=== PATIENT | female | born 1980 | race Caucasian/White ===

== ENCOUNTER 2017-04-27 13:57 | Inpatient (IN) ==
[2017-04-27 14:56] LABS: MANUAL DIFF NEEDED? NO
[2017-04-27 15:16] LABS: BASO% 0.4 % (0.0-0.8); EOS# 0.27 X1000 (0.0-0.7); EOS% 1.8 % (0.0-10.0); HEMATOCRIT 38.7 % (37.0-47.0); HEMOGLOBIN 12.4 g/dL (12.0-16.0); IMM GRAN# 0.03 X1000 (0.0-0.04); IMM GRAN% 0.2 % (0.0-0.5); LYMPH# 4.34 X1000 (1.2-3.4); LYMPH% 28.6 % (20.5-51.1); MCH 26.4 PG (27-31); MCV 82.5 FL (81-99); MONO# 0.66 X1000 (0.11-0.59); MONO% 4.4 % (1.7-9.3); MPV 11.5 FL (7.4-10.4); NEUT% 64.6 % (42.2-75.2); PLT 613 X1000 (130-400); RBC 4.69 XMIL (4.2-5.4)
[2017-04-27 15:49] LABS: ALBUMIN 4.3 g/dL (3.5-5.0); TOTAL BILIRUBIN 0.23 mg/dL (0.20-1.00); TOTAL PROTEIN 8.5 g/dL (6.3-8.3)
[2017-04-27] MEDS ORDERED: NS 1,000 ML IV ONE ×2 (16:00→16:39)
[2017-04-27] MEDS ORDERED: D50W SYRINGE IV ONE ×3 (16:00→22:31)
[2017-04-27] MEDS ORDERED: HUMULIN R IV ONE ×3 (16:01→23:11)
[2017-04-27] MEDS ORDERED: CALCIUM CHLORIDE SYRINGE IV ONE ×2 (16:02→17:00)
[2017-04-27] MEDS ORDERED: SODIUM BICARBONATE 8.4% IV ONE (16:02)
[2017-04-27] MEDS ORDERED: CARDIZEM IV ONE (16:03)
--- NOTE | 2017-04-27 16:05 | EKG Report ---
Test Performed on : 04/27/2017 3:47:00 PM Test Reason : ABNORMAL LABS Blood Pressure : / mmHG Vent. Rate : 154 BPM Atrial Rate : 375 BPM P-R Int : 000 ms QRS Dur : 074 ms QT Int : 110 ms P-R-T Axes : 000 027 000 degrees QTc Int : 176 ms Atrial fibrillation. with rapid ventricular response. with premature ventricular or aberrantly condu cted complexes. Low voltage QRS Possible Lateral infarct , age undetermined Abnormal ECG No previous ECGs available Unconfirmed Result
[2017-04-27] MEDS ORDERED: CALCIUM CHLORIDE 1 GM in NS 100 ML IV ONE (16:10)
[2017-04-27 16:20] LABS: URINE CULTURE NEEDED? NO; URINE SOURCE CLEAN CATCH
--- NOTE | 2017-04-27 16:22 | ED EKG INTERP ---
This chart was entered by Xochitl Us Scribe, acting as scribe for Bebeto Inman MD. EKG Interpretation - EKG Time of EKG reading by physician:: 15:47 EKG Read and Signed by:: Bebeto Inman EKG Interpretation (*Must complete 3 of following elements*): Abnormal Rate: 154 Rhythm: a-fib with RVR with premature or abberantly conducted complexes [place]: normal QRS: other (low voltage) NE Interval: normal ST Wave: normal Comments: possible lateral infarct Attestation - Physician/ MAURY Attestation Patient care was provided by Advanced Practice Provider:: No The physician spent face to face time with patient:: Yes Advanced Practice Provider documentation review:: Supervising physician onsite and consulted in the evaluation and care of this patient. The physician did have a face to face encounter with the patient. This chart was documented by the indicated scribe, (Xochitl Us Scribe) and accurately reflects the services I performed and decisions made by me, Bebeto Inman MD, as attested by the provider's signature.
--- NOTE | 2017-04-27 16:23 | PROVIDER DOCUMENTATION ---
This chart was entered by Xochitl Us Scribe, acting as scribe for Bebeto Inman MD. HPI-General Adult - General Source: patient - History of Present Illness -Gen Adult Nature of Presenting Problems: Patient is a 37 year old female who presents in the ED with complaints of hyperglycemia. She states over the last two to three days she has had elevated blood sugar (ranging around 500), and states she also has felt dizzy. She also states she was seen at an urgent care clinic a few days ago and was called today due to abnormal lab values (creatinine 4.5, BUN 114, and potassium of 8.0) . She denies any other symptoms. Location of Pain/Injury: reports: none Pain Radiation: reports: no radiation Quality of Pain: reports: none Severity: reports: mild, moderate Onset/Duration: reports: 3 days ago Timing: reports: still present, changing over time Context/Activities at Onset: reports: none Modifying Factors: improves with: nothing Associated Symptoms: reports: other (high blood sugar, abnormal labs) Similar Symptoms Previously?: No Recently seen or treated by another doctor?: No - Diabetes Related Context Context: reports: high blood sugar <Bebeto Inman - Last Filed: 04/27/17 17:48> - General Source: patient <Ras BlueHayley - Last Filed: 04/27/17 19:26> - General Chief Complaint: Abnormal Lab[s] Stated Complaint: SENT BY [facility] FOR FURTHER EVAL Time Seen by Provider: 04/27/17 15:51 Allergies/Adverse Reactions: Patient Allergies Allergy/AdvReac Type Severity Reaction Status Date / Time No Known Allergies Allergy Verified 04/27/17 16:15 Home Medications: Home Medication List Medication Instructions Recorded Confirmed Last Taken Type Crestor 20 mg PO QAM 07/09/13 03/17/15 03/16/15 14:00 History UNK Januvia PO DAILY 07/09/13 03/17/15 03/16/15 14:00 History UNK Lisinopril PO DAILY 07/09/13 03/17/15 03/16/15 14:00 History UNK Metformin [Glucophage] 1,000 mg PO BID 07/09/13 03/17/15 03/16/15 14:00 History Wellbutrin PO BID 07/09/13 03/17/15 03/16/15 14:00 History UNK Hydrocodone/Acetaminophen [[place] 1 each PO Q4-6H PRN PRN #12 tablet 03/17/15 Unknown Rx 5-325 Tablet] Mupirocin Ointment [Bactroban 1 applicatn TOP TID 03/17/15 03/17/15 03/16/15 14: 00 History Ointment] Ondansetron HCl [Zofran] 4 mg PO PRN PRN 03/17/15 03/17/15 Unknown History Sulfamethoxazole/Trimethoprim 1 each PO BID 03/17/15 03/17/15 03/16/15 14:00 History [Bactrim Ds Tablet] Review of Systems - Adult - REVIEW OF SYSTEMS - ADULT Constitutional: reports: see HPI, other (high blood sugar, abnormal lab values) Eyes: reports: no symptoms reported Ears, Nose, Mouth & Throat: reports: no symptoms reported Cardiovascular: reports: no symptoms reported Respiratory: reports: no symptoms reported Gastrointestinal: reports: no symptoms reported Genitourinary: reports: no symptoms reported Musculoskeletal: reports: no symptoms reported Integumentary: reports: no symptoms reported Neurological: reports: no symptoms reported Psychiatric: reports: no symptoms reported Endocrine: reports: no symptoms reported Hematologic/Lymphatic: reports: no symptoms reported Allergic/Immunologic: reports: no symptoms reported All Other Systems: Reviewed and Negative <Bebeto Inman - Last Filed: 04/27/17 17:48> - REVIEW OF SYSTEMS - ADULT Constitutional: denies: fever <Ras Blue - Last Filed: 04/27/17 19:26> Past History - Adult - PAST MEDICAL HISTORY-ADULT Review of Records: reports: Nursing Assessment Review, Medications Reviewed Major Childhood Illnesses: reports: denies history Cardiovascular: reports: HTN, hyperlipidemia Respiratory: reports: denies history Gastrointestinal: reports: denies history Obstetrical/Gynecological: reports: ovarian cysts (PCOS) Genitourinary: reports: denies history Musculoskeletal: reports: denies history Neurological: reports: denies history Psychiatric: reports: depression Endocrine/Immune: reports: Diabetes Other Conditions: reports: denies history - PRIOR SURGERIES/PROCEDURES Surgical/Procedure History: reports: none - IMMUNIZATION STATUS Childhood Immunizations: See Nurse Assessment Flu Vaccine: See Nurse Assessment - FAMILY HISTORY Family History: reviewed, not pertinent - SOCIAL HISTORY Smoking: cigarettes, less than 1 pack/day Substance Use: none/never Alcohol Use Frequency: never Living Situation: family <Bebeto Inman - Last Filed: 04/27/17 17:48> - PAST MEDICAL HISTORY-ADULT Review of Records: reports: Old Records Reviewed, Nursing Assessment Review, Medications Reviewed, Social history reviewed & non-contributory. <Ras Blue - Last Filed: 04/27/17 19:26> Physical Exam-General - PHYSICAL EXAM-ADULT Initial Vital Signs Reviewed: Yes - CONSTITUTIONAL General Appearance: alert, no apparent distress - EYES Eyes: PERRL/EOMI, pink conjunctivae - HEAD, EARS, NOSE, MOUTH & THROAT HENMT: normocephalic/atraumatic, moist mucous membranes - NECK Neck: non-tender, full range of motion, supple, normal inspection - RESPIRATORY Respiratory: chest non-tender, lungs clear, normal breath sounds, no pleuratic chest pain, no respiratory distress, no accessory muscle use - CARDIOVASCULAR Cardiovascular: no edema, no gallop, no JVD, no murmur, tachycardia, irregularly irregular - GASTROINTESTINAL (ABDOMEN) Abdominal Exam: normal bowel sounds, non tender, soft, no organomegaly, no pulsatile mass - LYMPHATIC Lymphatic: no adenopathy - MUSCULOSKELETAL Back Exam: normal inspection, no CVA tenderness, no vertebral tenderness Extremity: normal range of motion, non-tender, normal inspection, no pedal edema , no calf tenderness, normal capillary refill, pelvis stable - SKIN Integumentary: normal color, normal turgor, warm/dry - NEUROLOGIC Neurologic: grossly normal, no motor/sensory deficits - PSYCHIATRIC Psych/Mental Status: normal mood/affect, oriented x 3 <Bebeto Inman - Last Filed: 04/27/17 17:48> - PHYSICAL EXAM-ADULT Initial Vital Signs Reviewed: Yes - CONSTITUTIONAL General Appearance: alert, no apparent distress <Ras Blue - Last Filed: 04/27/17 19:26> Progress - PLAN OF CARE/RESULTS Progress/Plan/Lab Results: Vital Signs - 8 hr 04/27/17 14:03 Temperature 97.7 F Pulse Rate 98 H Respiratory Rate 20 Blood Pressure 109/50 O2 Sat by Pulse Oximetry 99 Laboratory Results - last 24 hr 04/27/17 04/27/17 14:12 14:12 WBC 15.16 H RBC 4.69 Hgb 12.4 Hct 38.7 MCV 82.5 MCH 26.4 L MCHC 32.0 L RDW Std Deviation 16.4 H Plt Count 613 H MPV 11.5 H Immature Gran % (Auto) 0.2 Neut % (Auto) 64.6 Lymph % (Auto) 28.6 [place] % (Auto) 4.4 Eos % (Auto) 1.8 Baso % (Auto) 0.4 Immature Gran # (Auto) 0.03 Neut # (Auto) 9.80 H Lymph # (Auto) 4.34 H [place] # (Auto) 0.66 H Eos # (Auto) 0.27 Baso # (Auto) 0.06 Sodium 135 L Potassium 8.0 H* Chloride 103 Carbon Dioxide 14 L Anion Gap 18 BUN 114 H Creatinine 4.5 H Estimated GFR/1.73 m2 11 BUN/Creatinine Ratio 25 Glucose 101 Calculated Osmolality 306 Calcium 10.0 Total Bilirubin 0.23 AST 8 L ALT 11 Alkaline Phosphatase 105 H Total Protein 8.5 H Albumin 4.3 Globulin 4.2 Albumin/Globulin Ratio 1.0 Amylase 49 Lipase 49 Orders Category Date Time Status Saline Loc DIRECTED Care 04/27/17 14:48 Active NPO Diet 04/27/17 14:48 Active AMYLASE [CHEM] Stat Lab 04/27/17 14:12 Completed CBC WITH ELECTRONIC DIFF [HEME] Stat Lab 04/27/17 14:12 Completed COMPREHENSIVE METABOLIC PANEL [CHEM] Stat Lab 04/27/17 14:12 Completed LIPASE [CHEM] Stat Lab 04/27/17 14:12 Completed URINALYSIS W/POSS RFLX CULT-1 [URINALYSIS] Stat Lab 04/27/17 14:48 Uncollected 0.9% Sodium Chloride Inj [Ns] 1,000 ml Med 04/27/17 16:00 Active IV 999 mls/hr Dextrose 50% Syringe [D50w Syringe] Med 04/27/17 16:00 Discontinued 50 ml IV NOW ONE Insulin Human Regular [Humulin R] Med 04/27/17 16:01 Discontinued 10 unit IV NOW ONE EKG [EKG] Stat Ther 04/27/17 15:53 Ordered Result Diagrams: 04/27/17 14:12 04/27/17 14:12 - REASSESSMENT Reassessment #1 Time Reassessed: 17:24 Status: improving (pt is now in sinus rythm, awaiting BMP) - CHANGE OF SHIFT REPORT (ED Provider) Report Given and Care Transferred to:: Dr Barry Time of Transfer: 18:00 Items Pending: Labs <Bebeto Inman - Last Filed: 04/27/17 17:48> - PLAN OF CARE/RESULTS Progress/Plan/Lab Results: Vital Signs - 8 hr 04/27/17 14:03 04/27/17 16:00 04/27/17 16:08 Temperature 97.7 F Pulse Rate 98 H 105 H 103 H Respiratory Rate 20 25 H 18 Blood Pressure 109/50 100/63 100/63 O2 Sat by Pulse Oximetry 99 100 100 04/27/17 17:23 Temperature Pulse Rate 103 H Respiratory Rate 18 Blood Pressure 108/45 O2 Sat by Pulse Oximetry 100 Laboratory Results - last 24 hr 04/27/17 04/27/17 04/27/17 14:12 14:12 16:15 WBC 15.16 H RBC 4.69 Hgb 12.4 Hct 38.7 MCV 82.5 MCH 26.4 L MCHC 32.0 L RDW Std Deviation 16.4 H Plt Count 613 H MPV 11.5 H Immature Gran % (Auto) 0.2 Neut % (Auto) 64.6 Lymph % (Auto) 28.6 [place] % (Auto) 4.4 Eos % (Auto) 1.8 Baso % (Auto) 0.4 Immature Gran # (Auto) 0.03 Neut # (Auto) 9.80 H Lymph # (Auto) 4.34 H [place] # (Auto) 0.66 H Eos # (Auto) 0.27 Baso # (Auto) 0.06 Sodium 135 L Potassium 8.0 H* Chloride 103 Carbon Dioxide 14 L Anion Gap 18 BUN 114 H Creatinine 4.5 H Estimated GFR/1.73 m2 11 BUN/Creatinine Ratio 25 Glucose 101 Calculated Osmolality 306 Calcium 10.0 Total Bilirubin 0.23 AST 8 L ALT 11 Alkaline Phosphatase 105 H Total Protein 8.5 H Albumin 4.3 Globulin 4.2 Albumin/Globulin Ratio 1.0 Amylase 49 Lipase 49 Urine Source CLEAN CATCH Urine Color YELLOW Urine Turbidity CLEAR Urine pH 5.0 Ur Specific [place] 1.022 Urine Protein 30 A Ur Glucose (Stick) 70 A Ur Ketones (Stick) NEGATIVE Urine Blood MODERATE A Urine Nitrite NEGATIVE Urine Bilirubin NEGATIVE Urobilinogen Dipstick NORMAL Urine Leukocytes NEGATIVE Urine WBC (Auto) <10 Urine RBC (Auto) <10 U Epithel Cells (Auto) <10 Urine Bacteria (Auto) NEGATIVE Urine Crystals Not Reportable Small Round Cells TRANS PRESENT Urine Casts NONE SEEN Urine Yeast-like Cells Not Reportable 04/27/17 16:57 WBC RBC Hgb Hct MCV MCH MCHC RDW Std Deviation Plt Count MPV Immature Gran % (Auto) Neut % (Auto) Lymph % (Auto) [place] % (Auto) Eos % (Auto) Baso % (Auto) Immature Gran # (Auto) Neut # (Auto) Lymph # (Auto) [place] # (Auto) Eos # (Auto) Baso # (Auto) Sodium 133 L Potassium 6.7 H* D Chloride 103 Carbon Dioxide 15 L Anion Gap 15 BUN 107 H Creatinine 4.1 H Estimated GFR/1.73 m2 12 BUN/Creatinine Ratio 26 Glucose 169 H D Calculated Osmolality 304 Calcium 8.3 L D Total Bilirubin AST ALT Alkaline Phosphatase Total Protein Albumin Globulin Albumin/Globulin Ratio Amylase Lipase Urine Source Urine Color Urine Turbidity Urine pH Ur Specific [place] Urine Protein Ur Glucose (Stick) Ur Ketones (Stick) Urine Blood Urine Nitrite Urine Bilirubin Urobilinogen Dipstick Urine Leukocytes Urine WBC (Auto) Urine RBC (Auto) U Epithel Cells (Auto) Urine Bacteria (Auto) Urine Crystals Small Round Cells Urine Casts Urine Yeast-like Cells Orders Category Date Time Status Saline Loc DIRECTED Care 04/27/17 14:48 Active NPO Diet 04/27/17 14:48 Active AMYLASE [CHEM] Stat Lab 04/27/17 14:12 Completed BMP [BASIC METABOLIC PANEL] [CHEM] Stat Lab 04/27/17 16:57 Completed CBC WITH ELECTRONIC DIFF [HEME] Stat Lab 04/27/17 14:12 Completed COMPREHENSIVE METABOLIC PANEL [CHEM] Stat Lab 04/27/17 14:12 Completed LIPASE [CHEM] Stat Lab 04/27/17 14:12 Completed URINALYSIS W/POSS RFLX CULT-1 [URINALYSIS] Stat Lab 04/27/17 16:15 Completed URINE MANUAL MICROSCOPIC [URINALYSIS] Stat Lab 04/27/17 16:15 Completed 0.9% Sodium Chloride Inj [Ns] 1,000 ml Med 04/27/17 16:00 Discontinued IV 999 mls/hr 0.9% Sodium Chloride Inj [Ns] 1,000 ml Med 04/27/17 16:39 Discontinued IV 999 mls/hr Albuterol [Albuterol Neb] Med 04/27/17 19:04 Discontinued 5 mg INH NOW ONE Calcium Chloride Syringe Med 04/27/17 17:00 Discontinued 1 gm IV NOW ONE Dextrose 50% Syringe [D50w Syringe] Med 04/27/17 16:00 Discontinued 50 ml IV NOW ONE Diltiazem [Cardizem] Med 04/27/17 16:03 Discontinued 25 mg IV NOW ONE Insulin Human Regular [Humulin R] Med 04/27/17 16:01 Discontinued 10 unit IV NOW ONE Sodium Bicarbonate 8.4% Med 04/27/17 16:02 Discontinued 50 meq IV NOW ONE Sodium Polystyrene [Kayexalate] Med 04/27/17 19:05 Discontinued 30 gm PO NOW ONE Aerosol Treatments Routine Oth 04/27/17 19:04 Active Aerosol Treatments Stat Oth 04/27/17 19:04 Active EKG [EKG] Stat Ther 04/27/17 15:53 Draft Result Diagrams: 04/27/17 14:12 04/27/17 16:57 <Ras Blue - Last Filed: 04/27/17 19:26> Departure - Departure Certified Medical Emergency: Emergent - Critical Care Note This patient required my direct & personal management of CC.: No <Bebeto Inman - Last Filed: 04/27/17 17:48> - Departure Date of Disposition Decision: 04/27/17 Time of Disposition Decision: 19:24 Certified Medical Emergency: Emergent - Critical Care Note This patient required my direct & personal management of CC.: No <Ras Blue - Last Filed: 04/27/17 19:26> - Departure DIAGNOSIS: Hyperkalemia, Acute kidney injury Hyperglycemia due to type 2 diabetes mellitus Qualifiers: 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 The physician did have a face to face encounter with the patient. <Bebeto Inman - Last Filed: 04/27/17 17:48> - Physician/ MAURY Attestation Patient care was provided by Advanced Practice Provider:: No The physician spent face to face time with patient:: Yes Advanced Practice Provider documentation review:: Supervising physician onsite and consulted in the evaluation and care of this patient. The physician did have a face to face encounter with the patient. <Ras Blue - Last Filed: 04/27/17 19:26> This chart was documented by the indicated scribe, (Xochitl Us Scribe) and accurately reflects the services I performed and decisions made by me, Bebeto Inamn MD, as attested by the provider's signature.
[2017-04-27 16:30] LABS: BILIRUBIN URINE NEGATIVE (NEGATIVE); BLOOD URINE MODERATE (NEGATIVE); COLOR YELLOW; GLUCOSE URINE 70 mg/dL (NEGATIVE); LEUKOCYTES URINE NEGATIVE (NEGATIVE); NITRITE URINE NEGATIVE (NEGATIVE); PROTEIN URINE 30 mg/dL (NEGATIVE); SP GRAVITY URINE 1.022; TURBIDITY URINE CLEAR (CLEAR); UROBILINOGEN URINE NORMAL (NORMAL)
[2017-04-27 16:32] LABS: URINE MICRO REVIEW NEEDED? YES
[2017-04-27 16:39] LABS: UR EPITHELIAL CELLS <10 /HPF (<10); URINE BACTERIA NEGATIVE /HPF; URINE RBC <10 /HPF (<10); URINE WBC <10 /HPF (<10)
[2017-04-27 16:58] LABS: URINE SMALL ROUND CELLS TRANS PRESENT
[2017-04-27 16:59] LABS: URINE CASTS NONE SEEN
[2017-04-27 18:23] LABS: CALCIUM 8.3 mg/dL (8.8-10.2); POTASSIUM 6.7 mmol/L (3.5-5.1)
[2017-04-27] MEDS ORDERED: ALBUTEROL NEB INH ONE (19:04)
[2017-04-27] MEDS ORDERED: KAYEXALATE PO ONE (19:05)
[2017-04-27] MEDS ORDERED: HUMALOG SUBQ ONE (22:31)
[2017-04-27] MEDS ORDERED: ZOFRAN IV PRN (22:31)
[2017-04-27] MEDS ORDERED: TYLENOL PO PRN (22:31)
[2017-04-27 22:42] LABS: CALCIUM 9.6 mg/dL (8.8-10.2)
[2017-04-27 22:43] LABS: HEMOGLOBIN A1C 10.8 % (4.8-6.0)
--- NOTE | 2017-04-27 22:48 | HISTORY AND PHYSICAL ---
PATIENT OF: José Antonio Real MD REASON FOR ADMISSION: Worsening weakness, lightheadedness and postural blood vision. Ongoing for the last 2 days. HISTORY OF PRESENT ILLNESS: Ms. Shannan Colvin is a 37-year-old woman with poorly controlled type 2 diabetes, hypertension, hyperlipidemia, who comes in today after being called by the [facility] who saw her 4 days ago to go to the ER because of some abnormal blood lab work. Over a week ago, she says she has been feeling weak, lightheaded and slightly short of breath with exertion. Five days later, she went to the urgent care center where she was diagnosed with some respiratory condition and started on Bactrim and received some other shots while she was there. She said since then, she has been getting much weaker and having more profound lightheadedness with intermittent blurred vision. No polyuria or polydipsia. No other cardiorespiratory complaints. She is having some slight nausea today, but no vomiting, diarrhea or blood loss. Appetite is diminished as a result of nausea she has been experiencing. She denies any palpitations or chest pain or any cardiorespiratory symptoms. No focal weakness, numbness, tingling, and almost had a syncopal event yesterday when she stood up. She has a very dull headache, but no other complaints. No other neurological complaints. No fever, no chills. She also admits to having decreasing urinary output, but no accompanying edema, PND, orthopnea or leg swelling. REVIEW OF SYSTEMS: Twelve system review is negative. Positive findings noted except for the positive findings noted in the HPI. ALLERGIES: No known allergies. HOME MEDICATIONS: Lipitor 20 mg daily. Wellbutrin 20 mg b.i.d. Xigduo 2 tablets b.i.d. [place] 5 mg q.4 p.r.n. Tresiba 40 units b.i.d. Lisinopril 20 mg daily. Bactrim 1 b.i.d. SURGICAL HISTORY: She has had an oophorectomy for a benign tumor. FAMILY HISTORY: No kidney disease. Positive for coronary artery disease and type 2 diabetes. SOCIAL HISTORY: Smokes 1 pack a day. No plans to quit. She is . No alcohol or illicit drug use. DIAGNOSTIC DATA: EKG did not show any evidence of a widening of the QRS. Normal sinus rhythm. White count 15,000, hemoglobin and hematocrit 12 and 38, platelets 613,000. Sodium is 133, potassium 6.7, bicarb 15, BUN 107, creatinine 4.1, glucose 169. Alkaline phosphatase 105. Amylase, lipase is normal. Urinalysis shows moderate blood. 70 glucose, 30 protein. EKG reviewed by me shows normal sinus rhythm with a possible Q-waves in the septal leads. Questionable left axis deviation. No QRS noted. Possible peaking of the Q- waves in anterior leads. PHYSICAL EXAMINATION: VITAL SIGNS: Blood pressure 112/67, heart rate 74, respirations 18, temperature is 97.7 degrees, 97% on room air. GENERAL: She is a young overweight woman who is not in acute distress. She is alert and oriented x3. Normal mood and affect. HEENT: Head is normocephalic, atraumatic. Eyes, RADHA, EOMI. She is anicteric and not pale. ENT and oropharyngeal exam grossly normal. She definitely has some degree of moderate hirsutism. NECK: Supple. No JVD or carotid bruit. No thyromegaly. CHEST: Clear to auscultation. Good air entry both lung collins. CARDIOVASCULAR: 1st and 2nd heart sounds heard. No gallops, murmurs, rubs, rhythm is regular. ABDOMEN: Soft, no tenderness. No mass or organomegaly, bowel sounds are hypoactive. RECTAL: Deferred at this time. EXTREMITIES: Neurovascularly intact. No edema, clubbing, cyanosis. NEUROLOGIC: No focal deficits. No myoclonus. SKIN: Good skin turgor, but no rash, no breakdown of skin, no erythema. MUSCULAR: Grossly normal. ASSESSMENT: Acute kidney injury probably secondary to concomitant use of VALE inhibitor and Bactrim with possible fluid losses from SGLT inhibitor. PLAN: 1. At this time, we will hydrate patient. Correct hyperkalemia resulting from acute kidney insufficiency. Discontinue any nephrotoxic medications, including lisinopril , Bactrim and even Xigduo. Repeat basic metabolic panel within the next 4 hours to document improvement of hyperkalemia. Also get another basic metabolic panel in the a.m. 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 Ensure antihypertensives are withheld if systolic blood pressure is less than 130 to not compromise effective renal perfusion. 2. Type 2 diabetes, probably uncontrolled. Continue with half-dose of Tresiba due to the patient's compromised renal failure as this is a very long-acting insulin which can put patient at risk of hypoglycemia. Check A1c, and continue with low sliding scale. 3. Hypertension. We will withhold any blood pressure medications since patient is normotensive. 4. Hyperlipidemia. Hold Lipitor in the short-term and resume once this is improved. I will also consult Dr. Adorno to see patient for acute kidney insufficiency for further input. cc: Srikanth Lundberg MD MTDD
[2017-04-27 22:54] LABS: POTASSIUM 6.2 mmol/L (3.5-5.1)
[2017-04-27] MEDS: NS 1,000 ML IV SCH (23:45)
[2017-04-28 05:18] LABS: MANUAL DIFF NEEDED? NO
[2017-04-28 05:32] LABS: BASO% 0.7 % (0.0-0.8); EOS# 0.31 X1000 (0.0-0.7); EOS% 2.9 % (0.0-10.0); HEMATOCRIT 32.7 % (37.0-47.0); HEMOGLOBIN 10.5 g/dL (12.0-16.0); IMM GRAN# 0.02 X1000 (0.0-0.04); IMM GRAN% 0.2 % (0.0-0.5); LYMPH# 6.31 X1000 (1.2-3.4); LYMPH% 58.7 % (20.5-51.1); MCH 26.2 PG (27-31); MCHC 32.1 g/dL (33-37); MCV 81.5 FL (81-99); MONO# 0.53 X1000 (0.11-0.59); MONO% 4.9 % (1.7-9.3); MPV 11.1 FL (7.4-10.4); NEUT% 32.6 % (42.2-75.2); PLT 425 X1000 (130-400); RBC 4.01 XMIL (4.2-5.4)
[2017-04-28 05:44] LABS: ALBUMIN 3.4 g/dL (3.5-5.0); CALCIUM 8.9 mg/dL (8.8-10.2); TOTAL BILIRUBIN 0.2 mg/dL (0.20-1.00); TOTAL PROTEIN 6.4 g/dL (6.3-8.3)
[2017-04-28 05:47] LABS: POTASSIUM 6.2 mmol/L (3.5-5.1)
[2017-04-28] MEDS: NS 1,000 ML IV SCH ×4 (05:53→22:27)
[2017-04-28] MEDS ORDERED: HUMULIN R IV ONE (05:59)
[2017-04-28] MEDS ORDERED: D50W SYRINGE IV ONE (06:00)
[2017-04-28] MEDS ORDERED: ALBUTEROL 0.5% INH CONC FOR HYPERKALEMIA INH ONE (06:00)
[2017-04-28] MEDS ORDERED: INSULIN PEN NEEDLES ONE (06:43)
[2017-04-28] MEDS: HUMALOG SUBQ SCH ×4 (07:19→22:25)
[2017-04-28] MEDS: NON-FORMULARY BULK MED SUBQ SCH ×3 (07:44→22:27)
[2017-04-28] MEDS: HEPARIN SUBQ SCH ×3 (07:44→22:26)
--- NOTE | 2017-04-28 13:23 | PROGRESS NOTE ---
DATE: 04/28/2017 SUBJECTIVE: Patient reports feeling fine. Denies any nausea or vomiting, eating okay. Denies any fever or chills. No vision problems. OBJECTIVE: Vital Signs: Temperature 98.4 degrees, heart rate 109, respiratory rate 16, blood pressure 111/60, O2 saturation 100% on room air. General examination: This is a 37-year-old, female lying in bed in no acute distress. HEENT: Head is normocephalic, atraumatic. Neck: Supple. No JVD noted. No carotid bruits. Cardiovascular exam: S1, S2 heard. No murmurs, gallops, or rubs. Regular rate and rhythm. Respiratory exam: Clear bilaterally to auscultation. No work of breathing or using accessory muscles. Abdomen: Soft, nontender to palpation. Bowel sounds present. No organomegaly. Extremities: No clubbing, cyanosis, or edema. Peripheral pulses present in both legs. Neurological exam: Patient alert and oriented x3. Moves 4 extremities. Cranial nerves 2-12 grossly normal. LABORATORY DATA: White cell count 10.75 with hemoglobin 10.5, hematocrit 32.7, platelets 425. The BMP shows a potassium of 4.7 with creatinine 2.0. Also, hemoglobin A1c is 10.8. ASSESSMENT AND PLAN: 1. Acute kidney injury. The renal function is getting better. We will continue with intravenous fluids. Apparently this condition has been secondary to nephrotoxic medication, including lisinopril and Bactrim. Nephrology has been consulted. Also, antihypertensive has been held to prevent any further low blood pressure that can worsen renal dysfunction. 2. Hyperkalemia. Condition has been completely resolved. 3. Poorly controlled diabetes mellitus type 2. Hemoglobin A1c returned at 10.5. We have marked importance of controlling blood sugars. At this point, the patient has been continued with doses of Tresiba. 4. Hypertension. Patient is undergoing tests, so all antihypertensive medications have been held. 5. Hyperlipidemia. Lipitor has been held. Continue until we see an improvement in renal function. cc: Gustavo Hodge MD
--- NOTE | 2017-04-28 14:50 | Diag Imaging Result Doc PS360 ---
EXAM: US RENAL 2 (RETROPER) COMPLETE HISTORY: decreased renal function TECHNIQUE: Renal ultrasound COMMENT: The study is somewhat suboptimal due to the patient's body habitus. The right kidney is 10.4 x 6.2 x 6.6 cm the left is 10 x 5.6 x 5.8 cm. The urinary bladder is unremarkable. There is no evidence of hydronephrosis mass or stones. IMPRESSION: No evidence of obstructive uropathy. Electronically signed by John York 04/28/2017 2:47 PM
--- NOTE | 2017-04-28 17:09 | CONSULTATION ---
DATE OF CONSULTATION: 04/28/2017 REASON FOR ADMISSION: Weakness, lightheadedness, abnormal lab values. REASON FOR CONSULTATION: Acute kidney injury. CONSULTING PHYSICIAN: Dr. Enamorado. HISTORY OF PRESENT ILLNESS: This is a 37-year-old female who has a past medical history that includes type 2 diabetes and hypertension. The patient is followed by Dr. Real on a regular basis and has labs drawn there routinely for her diabetes. She states that she has never been told of any abnormal renal function. The patient had been seen in an urgent care center within the last week prior to admission secondary to a respiratory illness. She was treated with Bactrim and was given some other medication. Over the course of time, she developed weakness and lightheadedness with blurred vision. She was then called by the urgent care center who said that she had abnormal lab work. She came into the emergency room and was found to have an initial creatinine of 4.5. She was admitted to the hospital for further workup and treatment including IV fluids and holding of nephrotoxic medications. She was noted to have hyperkalemia and was treated appropriately with adequate response. We have been asked to see her for her acute kidney injury. Today her creatinine is 2.0. She is feeling much better and has been able to eat with no nausea or vomiting. States her urine output is improved although this has not been quantified in the chart. PAST MEDICAL HISTORY: Type 2 diabetes, hypertension, hyperlipidemia, anxiety/ depression. SURGICAL HISTORY: Oophorectomy for benign tumor. ALLERGIES: No known drug allergies. HOME MEDICATIONS: Lipitor, Wellbutrin, Xigduo, [place], , lisinopril, and Bactrim. FAMILY HISTORY: Coronary artery disease and diabetes. SOCIAL HISTORY: Continues to smoke a pack a day. No ETOH, tobacco or illicit drug use. REVIEW OF SYSTEMS: Pertinent positives noted above in the HPI. PHYSICAL EXAMINATION: Vital Signs: Temperature 98 degrees, pulse 92, respiratory rate 16, blood pressure 116/74. Intake 1.4 L. Output has not been measured. General: This is a middle-aged female, sitting up in the bed. She is awake, alert, no acute distress. HEENT: Normocephalic, atraumatic. Oral mucosa is moist. Dentition normal. PERRL, conjunctivae pale. Neck: Supple. Trachea midline. No JVD. Cardiovascular: Regular rate and rhythm. No murmur or gallop noted. Pulmonary: She has equal excursion. She is on room air. Abdomen: Soft with positive bowel sounds. : Not inspected. She is voiding. Extremities: No clubbing, cyanosis or edema. She has been ambulatory without assistance. Integumentary: Skin is warm and dry. Neuro: Grossly nonfocal. LAB DATA: WBC of 10.7, hemoglobin 10.5. Sodium 142, potassium 4.7, chloride 113, CO2 16, BUN 78, creatinine 2.0 (2.9, 4.1, 4.5), albumin 3.4. IMAGING: She had a renal ultrasound that showed kidney size 10 x 10 cm. No hydronephrosis was noted. ASSESSMENT AND PLAN: 1. Acute kidney injury secondary to medication use (Bactrim, lisinopril) along with intravascular volume depletion. The patient has been given IV fluids overnight and has an excellent response in renal function. We will make no changes to the current treatment plan. OK to discharge and we will follow as outpatient. rg 2. Electrolytes. She did have hyperkalemia on admission likely secondary to # 1. This was treated with Kayexalate. Potassium is in normal limits. 3. Acidosis. This is mild. 4. Hypertension, currently controlled. 5. Disposition. If the patient's renal function has returned to normal by morning, we would be in agreement for her to be discharged. If she has had adequate improvement, she can be discharged to follow up in our office in 2 weeks. Dictated by BLAINE Santos for Mert Adorno MD Patient seen, data reviewed, discussed with David Sanchez on 04/28/17. I agree with the above assessment and plan of care. rg cc: Mert Adorno MD [facility]
[2017-04-29 01:15] LABS: UR CREAT RANDOM 41.5 mg/dL (11-20)
[2017-04-29] MEDS: NS 1,000 ML IV SCH ×3 (03:48→07:51)
[2017-04-29 05:47] LABS: AGAP 12; ALBUMIN 3.1 g/dL (3.5-5.0); BUN 40 mg/dL (8-22); CALCIUM 8.3 mg/dL (8.8-10.2); CHLORIDE 113 mmol/L (98-107); COSMO 297; POTASSIUM 5.5 mmol/L (3.5-5.1); SODIUM 142 mmol/L (136-145); TCO2 17 mmol/L (25-35)
[2017-04-29] MEDS: HUMALOG SUBQ SCH ×2 (07:38→11:43)
[2017-04-29 07:45] VITALS: BP 99/64
[2017-04-29] MEDS: HEPARIN SUBQ SCH (09:42)
[2017-04-29] MEDS: NON-FORMULARY BULK MED SUBQ SCH (09:43)
[2017-04-29] MEDS ORDERED: VELTASSA PO ONE (09:59)
--- NOTE | 2017-04-29 12:56 | PROGRESS NOTE ---
DATE: 04/29/2017 SUBJECTIVE: She is asking for discharge. She ate her breakfast. She is ambulatory. No dizziness. OBJECTIVE: Vital Signs: Blood pressure 99/64, heart rate 90, respirations 16, afebrile. General: She is in no acute distress. Skin: Warm and dry. Eyes: Conjunctivae are pink. Pupils are equal. Neck: Neck veins are not distended. Heart: Regular without gallops or murmurs. Lungs: Have equal breath sounds. No crackles. Abdomen: Soft, nontender. Bowel sounds present. Extremities: Have no edema, clubbing, or cyanosis. IMPRESSION: Acute kidney injury. Resolved. I would hold her lisinopril for up to 2 weeks before restarting it. Given that her renal function is normal, I do not see any value in seeing her as an outpatient. I would be glad to see her though if anything changes. cc: Mert Adorno MD
--- NOTE | 2017-04-30 10:28 | DISCHARGE SUMMARY ---
ADMISSION DATE: 04/27/2017 DISCHARGE DATE: 04/29/2017 OPERATIVE PROCEDURES: Renal ultrasound showed no evidence of obstructive uropathy. CONSULTATIONS: Dr. Mert Adorno with Nephrology. DISCHARGE DIAGNOSES: 1. Acute kidney injury secondary to medication use with Bactrim and lisinopril, along with intravascular volume depletion. Excellent response with IV fluids greatly improved. 2. Hypertension controlled. 3. Hypokalemia resolved. 4. Poorly controlled diabetes mellitus type 2. Hemoglobin A1c was 10. The patient has been educated on controlling blood sugars and educated on diabetic diet and continuing her Tresiba. 5. Hyperlipidemia, continue Lipitor. HOSPITAL COURSE: Briefly, Ms. Colvin is a 37-year-old female with poorly controlled diabetes mellitus type 2, hypertension, and hyperlipidemia who came to the ED after being called by Urgent Care who saw her 4 days prior telling her to go to the ED because of some abnormal lab work over a week ago. She states that she had been feeling weak, lightheaded and slightly short of breath with exertion. She went to an urgent care center where she was diagnosed with a respiratory condition and started on Bactrim and received some other shot while she was there. Since that time she has been getting much weaker and having more profound lightheadedness with intermittent blurred vision. Her appetite was diminished as result of nausea. She did report a near-syncopal event when she stood up, dull headache. No polyuria or polydipsia. She did have decreased urinary output, but no accompanying edema, PND, orthopnea or leg swelling. LABORATORY DATA IN THE ED: Showed a white count of 15, hemoglobin and hematocrit of 12 and 38, platelet count 613,000, sodium 133, potassium of 6.1, bicarb 15, BUN 103, and a creatinine of 4.1, blood glucose of 169. Alkaline phosphatase 105, amylase and lipase were normal. Urinalysis showed moderate blood. She was admitted for an acute kidney injury secondary to her VALE inhibitor and Bactrim as well fluid volume depletion. She was aggressively hydrated, discontinued her nephrotoxic medication. Consulted Nephrology, placed her on a sliding scale with pattern blood sugars. Renal ultrasound was performed that did not show any obstructive uropathy. She had excellent response to her IV fluids. Her renal function greatly improved. She was making urine. Her potassium is now within normal limits. Her hypertension is controlled. From a nephrology standpoint, she can be discharged to follow up in their office in 2 weeks. As of note, she was also given Kayexalate for her severe hypokalemia on admission, as well as Veltassa. On admission she was treated per protocol for her hypokalemia and was given Veltassa by Dr. Enamorado. VITAL SIGNS AT THE TIME OF DISCHARGE: Temperature is 97.9 degrees, heart rate 90, respirations 18, blood pressure 99/64. O2 is 100% on room air. DISCHARGE DIET: Diabetic. DISCHARGE MEDICATIONS: 1. As per Dr. Enamorado. 2. Atorvastatin 20 mg p.o. daily. 3. Wellbutrin 200 mg p.o. b.i.d. 4. Xigduo XR 5 mg/1000 mg tablet 2 each p.o. b.i.d. 5. [place] 5/325, 1 each p.o. q.4 q.6 hours p.r.n. pain. 6. Tresiba flex touch 40 mg subcutaneous b.i.d. 7. Lisinopril 20 mg p.o. daily. 8. Bacitracin 1 application topical. FOLLOW UP: Ms. Colvin is being discharged home with self care. She is to follow up with Dr. Adorno in 2 weeks. She will follow up with her primary care physician in 1-2 weeks. She can return to the ED for any worsening of symptoms. Dictated by BLAINE Multain for Gustavo Hodge MD cc: Gustavo Hodge MD
== END 2017-04-29 11:49 | disposition home or self-care (01) ==
LOC: ED 13:57 → SUATTDRO 22:19 → 4N 22:19
PROVIDERS: ATTEND Internal Medicine

== ENCOUNTER 2019-08-19 11:16 | Inpatient (IN) ==
[2019-08-19] MEDS ORDERED: ROCEPHIN 1 GM in NS 50 ML IV ONE (12:00)
[2019-08-19] MEDS ORDERED: XYLOCAINE 1% INJ ONE (12:01)
[2019-08-19 12:38] LABS: BASO# 0.09 X1000 (0.0-0.2); BASO% 0.4 % (0.0-0.8); EOS# 0.15 X1000 (0.0-0.7); EOS% 0.7 % (0.0-10.0); HEMATOCRIT 41.6 % (37.0-47.0); HEMOGLOBIN 12.8 g/dL (12.0-16.0); IMM GRAN# 0.08 X1000 (0.0-0.04); IMM GRAN% 0.4 % (0.0-0.5); LYMPH% 17.5 % (20.5-51.1); MCH 26.8 PG (27-31); MCHC 30.8 g/dL (33-37); MONO# 0.85 X1000 (0.11-0.59); MONO% 3.8 % (1.7-9.3); MPV 11.1 FL (7.4-10.4); NEUT# 17.23 X1000 (1.4-6.5); NEUT% 77.2 % (42.2-75.2); PLT 577 X1000 (130-400); RBC 4.78 XMIL (4.2-5.4); RDW 15.3 % (11.5-14.5)
[2019-08-19 13:16] LABS: CALCIUM 8.5 mg/dL (8.8-10.2); CREATININE 2.5 mg/dL (0.5-0.9)
[2019-08-19] MEDS ORDERED: NS 500 ML IV ONE (13:16)
[2019-08-19] MEDS ORDERED: VANCOMYCIN 1 GM/NS 1 GM/250 ML IVPB IV ONE (13:16)
[2019-08-19] MEDS ORDERED: NS 1,000 ML IV ONE ×2 (13:16→14:42)
[2019-08-19] MEDS ORDERED: ZOSYN 3.375 GM in NS 50 ML IV ONE (13:17)
[2019-08-19 13:20] LABS: POTASSIUM 6.5 mmol/L (3.5-5.1)
--- NOTE | 2019-08-19 13:32 | Diag Imaging Result Doc PS360 ---
CHEST-1 VIEW - 08/19/2019 INDICATION: SEPSIS PROTOCOL COMPARISON: 10/08/2010 FINDINGS: The lungs are normally expanded and clear. Heart size and mediastinal contours are normal. No pneumothorax or pleural effusion. IMPRESSION: Negative exam. Electronically signed by Giovanni Castro 08/19/2019 1:30 PM
[2019-08-19 14:27] LABS: INR 0.98; PROTIME 13.1 Seconds (11.0-16.0)
[2019-08-19 14:28] LABS: PTT 28.9 Seconds (22.3-41.8)
[2019-08-19 14:54] LABS: ALB/GLOB RATIO 1.3; ALBUMIN 3.6 g/dL (3.5-5.0); CALCIUM 8.3 mg/dL (8.8-10.2); CREATININE 2.5 mg/dL (0.5-0.9); TOTAL BILIRUBIN 0.16 mg/dL (0.20-1.00); TOTAL PROTEIN 6.3 g/dL (6.3-8.3)
[2019-08-19 14:59] LABS: URINE SOURCE CLEAN CATCH
[2019-08-19 14:59] LABS: POTASSIUM 6.9 mmol/L (3.5-5.1)
[2019-08-19 15:03] LABS: BILIRUBIN URINE NEGATIVE (NEGATIVE); BLOOD URINE NEGATIVE (NEGATIVE); COLOR YELLOW; GLUCOSE URINE 150 mg/dL (NEGATIVE); KETONE URINE NEGATIVE (NEGATIVE); LEUKOCYTES URINE LARGE (NEGATIVE); NITRITE URINE NEGATIVE (NEGATIVE); PH URINE 5.5; PROTEIN URINE 50 mg/dL (NEGATIVE); SP GRAVITY URINE 1.035; TURBIDITY URINE HAZY (CLEAR); UROBILINOGEN URINE NORMAL (NORMAL)
[2019-08-19] MEDS ORDERED: CALCIUM GLUCONATE 2 GM in NS 100 ML IV ONE (15:06)
[2019-08-19] MEDS ORDERED: VELTASSA PO ONE (15:06)
[2019-08-19] MEDS ORDERED: SODIUM BICARBONATE 8.4% IV PUSH ONE (15:06)
[2019-08-19] MEDS ORDERED: D50W SYRINGE IV ONE (15:06)
[2019-08-19] MEDS ORDERED: HUMULIN R IV ONE (15:06)
[2019-08-19 15:11] LABS: URINE RBC <10 /HPF (<10)
[2019-08-19 15:12] LABS: UR EPITHELIAL CELLS >10 /HPF (<10); URINE CASTS NONE SEEN; URINE CRYSTALS NONE SEEN; URINE SMALL ROUND CELLS NONE SEEN; URINE YEAST PRESENT
--- NOTE | 2019-08-19 15:26 | PROVIDER DOCUMENTATION ---
This chart was entered by Angelic Quintana Scribe, acting as scribe for Stoney Chacko MD. HPI-Rash/Wound/ReCheck - General Chief Complaint: Extremity Pain Stated Complaint: INFECTION ON FINGER Time Seen by Provider: 08/19/19 11:42 Source: patient, family () Allergies/Adverse Reactions: Allergies Allergy/AdvReac Type Severity Reaction Status Date / Time No Known Allergies Allergy Verified 04/27/17 16:15 Home Medications: Home Medication List Medication Instructions Recorded Confirmed Last Taken Type Lisinopril 20 mg PO DAILY 07/09/13 04/27/17 04/26/17 08:00 History Hydrocodone/Acetaminophen [[place] 1 each PO Q4-6H PRN PRN #12 tablet 03/17/15 04/27/17 Unknown Rx 5-325 Tablet] Mupirocin Ointment [Bactroban 1 applicatn TOP TID 03/17/15 04/27/17 03/16/15 14:00 History Ointment] Atorvastatin Calcium 20 mg PO DAILY 04/27/17 04/27/17 04/26/17 20:00 History Bupropion [Wellbutrin] 200 mg PO BID 04/27/17 04/27/17 04/26/17 20:00 History Dapagliflozin/Metformin HCl 2 each PO BID 04/27/17 04/27/17 04/26/17 20:00 History [Xigduo Xr 5 mg-1,000 mg Tablet] Insulin Degludec [Tresiba 40 mg SQ BID 04/27/17 04/27/17 04/26/17 20:00 History Flextouch U-100] - History of Present Illness-Dermatology Nature of Presenting Problem: Pt is a 39 yowf brought into the ed by her with an infection in her 3rd finger on her right hand. Pt's said she has been at Urgent Care 2x in the last 2 weeks and they have given her antibiotics and drained the site 2x but site is not getting better. Pt is alert and nontoxic in appearance. Location: reports: hands (3rd finger right hand) Quality: reports: stinging Severity: reports: mild Onset/Duration: reports: last week Timing: reports: still present, getting worse Context/Associated Symptoms: reports: other (ulceration) Review of Systems - Adult - REVIEW OF SYSTEMS - ADULT Constitutional: reports: see HPI. denies: fever Eyes: reports: no symptoms reported Ears, Nose, Mouth & Throat: reports: no symptoms reported Cardiovascular: reports: see HPI. denies: syncope Respiratory: reports: no symptoms reported Gastrointestinal: reports: nausea, vomiting Genitourinary: reports: no symptoms reported Musculoskeletal: reports: see HPI (right 3rd finger), bone pain Integumentary: reports: no symptoms reported Neurological: reports: no symptoms reported Psychiatric: reports: no symptoms reported Endocrine: reports: no symptoms reported Hematologic/Lymphatic: reports: no symptoms reported Allergic/Immunologic: reports: no symptoms reported All Other Systems: Reviewed and Negative Past History - Adult - PAST MEDICAL HISTORY-ADULT Review of Records: reports: Old Records Reviewed, Nursing Assessment Review, Medications Reviewed, Social history reviewed & non-contributory. Major Childhood Illnesses: reports: denies history Cardiovascular: reports: HTN, hyperlipidemia Respiratory: reports: denies history Gastrointestinal: reports: denies history Obstetrical/Gynecological: reports: ovarian cysts (PCOS) Genitourinary: reports: denies history Musculoskeletal: reports: denies history Neurological: reports: denies history Psychiatric: reports: depression Endocrine/Immune: reports: Diabetes Other Conditions: reports: denies history - PRIOR SURGERIES/PROCEDURES Surgical/Procedure History: reports: none - IMMUNIZATION STATUS Childhood Immunizations: See Nurse Assessment Flu Vaccine: See Nurse Assessment - FAMILY HISTORY Family History: reviewed, not pertinent - SOCIAL HISTORY Smoking: cigarettes, less than 1 pack/day Provider spent 3-5 mins advising pt. on dangers of tobacco.: Discussed manners to quit use, and f/u contacts for add'l counseling. Substance Use: denies Living Situation: family () Physical Exam-General - PHYSICAL EXAM-ADULT Initial Vital Signs Reviewed: Yes (HR 133) - CONSTITUTIONAL General Appearance: appears well, alert, no apparent distress - EYES Eyes: PERRL/EOMI - HEAD, EARS, NOSE, MOUTH & THROAT HENMT: moist mucous membranes - NECK Neck: non-tender - RESPIRATORY Respiratory: chest non-tender, lungs clear, normal breath sounds - CARDIOVASCULAR Cardiovascular: tachycardia - GASTROINTESTINAL (ABDOMEN) Abdominal Exam: non tender, soft - MUSCULOSKELETAL Back Exam: no CVA tenderness, no vertebral tenderness Extremity: non-tender, normal gait, swelling (3rd finger ulnar side ulceration), tenderness - SKIN Integumentary: normal color, normal turgor, other (ulceration on 3rd finger of right hand) - PSYCHIATRIC Psych/Mental Status: normal mood/affect, normal thought content, normal thought process, oriented x 3 Progress - PLAN OF CARE/RESULTS Progress/Plan/Lab Results: Vital Signs - 8 hr 08/19/19 11:22 08/19/19 11:33 08/19/19 11:35 Temperature 98.2 F Pulse Rate 133 H 103 H Respiratory Rate 20 19 Blood Pressure 75/48 104/53 O2 Sat by Pulse Oximetry 96 08/19/19 11:45 08/19/19 12:15 08/19/19 12:33 Temperature Pulse Rate 102 H 95 H 91 H Respiratory Rate 16 20 19 Blood Pressure 92/47 O2 Sat by Pulse Oximetry 98 97 99 08/19/19 12:43 08/19/19 12:53 08/19/19 13:03 Temperature Pulse Rate 101 H 97 H 96 H Respiratory Rate 22 21 22 Blood Pressure 116/59 96/48 93/53 O2 Sat by Pulse Oximetry 99 94 L 99 08/19/19 13:13 08/19/19 13:23 08/19/19 13:33 Temperature Pulse Rate 93 H 101 H 95 H Respiratory Rate 19 16 18 Blood Pressure 82/57 88/57 108/56 O2 Sat by Pulse Oximetry 99 99 08/19/19 13:43 08/19/19 13:45 08/19/19 13:47 Temperature Pulse Rate 102 H 98 H 97 H Respiratory Rate 17 22 21 Blood Pressure 70/45 85/45 O2 Sat by Pulse Oximetry 08/19/19 13:53 08/19/19 14:00 08/19/19 14:03 Temperature Pulse Rate 89 101 H 90 Respiratory Rate 19 17 20 Blood Pressure 93/52 99/53 O2 Sat by Pulse Oximetry 08/19/19 14:13 08/19/19 14:15 08/19/19 14:23 Temperature Pulse Rate 98 H 97 H 93 H Respiratory Rate 22 19 20 Blood Pressure 100/57 93/55 O2 Sat by Pulse Oximetry 99 100 97 08/19/19 14:30 08/19/19 14:46 08/19/19 14:47 Temperature Pulse Rate 93 H 93 H 96 H Respiratory Rate 19 17 15 Blood Pressure 104/57 O2 Sat by Pulse Oximetry 97 98 Laboratory Results - last 24 hr 08/19/19 08/19/1908/19/19 11:50 11:50 11:50 WBC 22.30 H RBC 4.78 Hgb 12.8 Hct 41.6 MCV 87.0 MCH 26.8 L MCHC 30.8 L RDW Std Deviation 15.3 H Plt Count 577 H MPV 11.1 H Immature Gran % (Auto) 0.4 Neut % (Auto) 77.2 H Lymph % (Auto) 17.5 L Ray % (Auto) 3.8 Eos % (Auto) 0.7 Baso % (Auto) 0.4 Immature Gran # (Auto) 0.08 H Neut # (Auto) 17.23 H Lymph # (Auto) 3.90 H Ray # (Auto) 0.85 H Eos # (Auto) 0.15 Baso # (Auto) 0.09 PT 13.1 INR 0.98 PTT (Actin FS) 28.9 Sodium 130 L Potassium 6.5 H* Chloride 98 Carbon Dioxide 8 L Anion Gap 24 BUN 79 H Creatinine 2.5 H Estimated GFR/1.73 m2 22 BUN/Creatinine Ratio 32 Glucose 244 H Calculated Osmolality 293 Calcium 8.5 L Total Bilirubin AST ALT Alkaline Phosphatase Creatine Kinase Troponin T Total Protein Albumin Globulin Albumin/Globulin Ratio Plasma Lactate Urine Source Urine Color Urine Turbidity Urine pH Ur Specific [place] Urine Protein Ur Glucose (Stick) Ur Ketones (Stick) Urine Blood Urine Nitrite Urine Bilirubin Urobilinogen Dipstick Urine Leukocytes Urine WBC (Auto) Urine RBC (Auto) U Epithel Cells (Auto) Urine Bacteria (Auto) Urine Crystals Small Round Cells Urine Casts Urine Yeast-like Cells 08/19/19 08/19/19 08/19/19 14:11 14:11 14:11 WBC RBC Hgb Hct MCV MCH MCHC RDW Std Deviation Plt Count MPV Immature Gran % (Auto) Neut % (Auto) Lymph % (Auto) Ray % (Auto) Eos % (Auto) Baso % (Auto) Immature Gran # (Auto) Neut # (Auto) Lymph # (Auto) Ray # (Auto) Eos # (Auto) Baso # (Auto) PT INR PTT (Actin FS) Sodium 135 L Potassium 6.9 H* Chloride 105 Carbon Dioxide 10 L Anion Gap 20 BUN 78 H Creatinine 2.5 H Estimated GFR/1.73 m2 22 BUN/Creatinine Ratio 31 Glucose 184 H Calculated Osmolality 298 Calcium 8.3 L Total Bilirubin 0.16 L AST 21 ALT 28 Alkaline Phosphatase 108 H Creatine Kinase 23 L Troponin T < 0.010 Total Protein 6.3 Albumin 3.6 Globulin 2.7 Albumin/Globulin Ratio 1.3 Plasma Lactate 1.2 Urine Source Urine Color Urine Turbidity Urine pH Ur Specific [place] Urine Protein Ur Glucose (Stick) Ur Ketones (Stick) Urine Blood Urine Nitrite Urine Bilirubin Urobilinogen Dipstick Urine Leukocytes Urine WBC (Auto) Urine RBC (Auto) U Epithel Cells (Auto) Urine Bacteria (Auto) Urine Crystals Small Round Cells Urine Casts Urine Yeast-like Cells 08/19/19 14:46 WBC RBC Hgb Hct MCV MCH MCHC RDW Std Deviation Plt Count MPV Immature Gran % (Auto) Neut % (Auto) Lymph % (Auto) Ray % (Auto) Eos % (Auto) Baso % (Auto) Immature Gran # (Auto) Neut # (Auto) Lymph # (Auto) Ray # (Auto) Eos # (Auto) Baso # (Auto) PT INR PTT (Actin FS) Sodium Potassium Chloride Carbon Dioxide Anion Gap BUN Creatinine Estimated GFR/1.73 m2 BUN/Creatinine Ratio Glucose Calculated Osmolality Calcium Total Bilirubin AST ALT Alkaline Phosphatase Creatine Kinase Troponin T Total Protein Albumin Globulin Albumin/Globulin Ratio Plasma Lactate Urine Source CLEAN CATCH Urine Color YELLOW Urine Turbidity HAZY Urine pH 5.5 Ur Specific [place] 1.035 Urine Protein 50 A Ur Glucose (Stick) 150 A Ur Ketones (Stick) NEGATIVE Urine Blood NEGATIVE Urine Nitrite NEGATIVE Urine Bilirubin NEGATIVE Urobilinogen Dipstick NORMAL Urine Leukocytes LARGE A Urine WBC (Auto) <10 Urine RBC (Auto) <10 U Epithel Cells (Auto) >10 A Urine Bacteria (Auto) 1+ Urine Crystals NONE SEEN Small Round Cells NONE SEEN Urine Casts NONE SEEN Urine Yeast-like Cells PRESENT Orders Category Date Time Status ED: Urine Bedside NOW Care 08/19/19 15:05 Active FSBS/Accucheck Result AC + HS Care 08/19/19 15:20 Active IV Insertion ORDERED Care 08/19/19 13:16 Completed Intake and Output-Strict ORDERED Care 08/19/19 13:16 Active Notify MD of + Sepsis Screen NOW Care 08/19/19 13:15 Active Notify MD/PA/DEVELOPMENT INTERN for exam NOW Care 08/19/19 13:16 Active Notify Physician As Ordered Care 08/19/19 13:15 Active Nursing [[facility] [place]. NRSG Communication Order] DIRECTED Care 08/19/19 12:01 Active Nursing- MD Consult Request ROUTINE Care 08/19/19 15:19 Active Repeat Vital Signs .Blood Pressure Care 08/19/19 13:16 Active Repeat Vital Signs .Heart Rate Care 08/19/19 13:16 Active Repeat Vital Signs .Oxygen Saturation Care 08/19/19 13:16 Active Repeat Vital Signs .Respiratory Rate Care 08/19/19 13:16 Active Repeat Vital Signs .Temp Care 08/19/19 13:16 Active Physician/Provider Consults Routine Cons 08/21/19 08:00 Ordered Regular Diet Diet 08/19/19 14:50 Active CHEST-1 VIEW [RAD] Stat Exams 08/19/19 13:15 Completed HAND COMPLETE RIGHT [RAD] Routine Exams 08/19/19 15:00 Ordered US RENAL 2 (RETROPER) COMPLETE [US] Routine Exams 08/19/19 15:11 Ordered BASIC METABOLIC PANEL [CHEM] Stat Lab 08/19/19 11:50 Completed BLOOD CULTURE [BLDCUL] Stat Lab 08/19/19 11:50 Results CBC WITH DIFF [HEME] Stat Lab 08/19/19 11:50 Completed CK PROFILE [SP CHEM] Stat Lab 08/19/19 14:11 Completed COMPREHENSIVE METABOLIC PANEL [CHEM] Stat Lab 08/19/19 14:11 Completed EOS URINE SMEAR [HEME] Routine Lab 08/19/19 14:46 Received LACTATE, PLASMA [CHEM] Lab 08/19/19 16:15 Uncollected LACTATE, PLASMA [CHEM] Lab 08/19/19 19:15 Uncollected LACTATE, PLASMA [CHEM] Q3H Lab 08/19/19 14:11 Completed PROTIME WITH INR [COAG] Stat Lab 08/19/19 11:50 Completed PTT [COAG] Stat Lab 08/19/19 11:50 Completed RENAL PROFILE [CHEM] DAILY Lab 08/20/19 06:00 Ordered RENAL PROFILE [CHEM] DAILY Lab 08/21/19 06:00 Ordered RENAL PROFILE [CHEM] DAILY Lab 08/22/19 06:00 Ordered SED RATE [HEME] Routine Lab 08/19/19 15:12 Uncollected SERUM PROTEIN ELECTROPHORESIS [HH] Routine Lab 08/19/19 15:12 Uncollected TROPONIN T Stat Lab 08/19/19 14:11 Completed UR CREAT RANDOM [URCHEM] Routine Lab 08/19/19 14:46 Received UR PROT RANDOM [URCHEM] Routine Lab 08/19/19 14:46 Received UR SODIUM [URCHEM] Routine Lab 08/19/19 14:46 Received URINALYSIS W/POSS RFLX CULT [URINALYSIS] Stat Lab 08/19/19 14:46 Completed URINE CULTURE [RM] Routine Lab 08/19/19 15:12 Received URINE MANUAL MICROSCOPIC [URINALYSIS] Stat Lab 08/19/19 14:46 Completed 0.9% Sodium Chloride Inj [Ns] 1,000 ml Med 08/19/19 14:42 Active IV 999 mls/hr 0.9% Sodium Chloride Inj [Ns] 1,000 ml Med 08/19/19 13:16 Discontinued IV As Directed mls/hr 0.9% Sodium Chloride Inj [Ns] 500 ml Med 08/19/19 13:16 Discontinued IV 999 mls/hr Albuterol 0.5% INH Conc [Albuterol 0.5% INH Conc For Med 08/19/19 15:06 Discontinued Hyperkalemia] 25 mg INH NOW ONE Calcium Gluconate 2 gm Med 08/19/19 15:06 Active 0.9% Sodium Chloride Inj [Ns] 100 ml IV NOW CefTRIAXONE [Rocephin] 1 gm Med 08/19/19 12:00 Discontinued 0.9% Sodium Chloride Inj [Ns] 50 ml IV NOW Dextrose 50% Syringe [D50w Syringe] Med 08/19/19 15:06 Discontinued 50 ml IV NOW ONE Insulin Human Regular [Humulin R] Med 08/19/19 15:06 Discontinued 10 unit IV NOW ONE Insulin Lispro [Humalog] Med 08/19/19 16:00 Active See Protocol SUBQ 0700,1100,1600,2100 Lidocaine 1% [Xylocaine 1%] Med 08/19/19 12:01 Discontinued 20 ml INJ NOW ONE Patiromer [Veltassa] Med 08/19/19 15:06 Discontinued 8.4 gm PO ONCE ONE Piperacillin/Tazobactam [Zosyn] 3.375 gm Med 08/19/19 13:17 Discontinued 0.9% Sodium Chloride Inj [Ns] 50 ml IV NOW Sodium Bicarbonate 8.4% Med 08/19/19 15:06 Discontinued 50 meq IV PUSH NOW ONE Vancomycin 1 gm/Ns Med 08/19/19 13:16 Discontinued 1 gm in 250 ml IV NOW Aerosol Treatments Routine Oth 08/19/19 15:07 Active Aerosol Treatments Stat Oth 08/19/19 15:07 Active Result Diagrams: 08/19/19 11:50 08/19/19 14:11 - REASSESSMENT Reassessment #1 Time Reassessed: 14:15 Status: unchanged Reassessment Comment: at bedside discussing admit - EKG 1 Time of EKG reading by physician:: 11:42 EKG Read and Signed by:: Stoney Chacko EKG Interpretation (*Must complete 3 of following elements*): Abnormal Rate: 101 Rhythm: Sinus tachycardia QRS: LVH Comments: Cannot rule out Inferior infarct, age undetermined - XRAY 1 XRAY Study: Chest Impression: See EMR Report (CHEST-1 VIEW - 08/19/2019 INDICATION: SEPSIS PROTOCOL COMPARISON: 10/08/2010 FINDINGS: The lungs are normally expanded and clear. Heart size and mediastinal contours are normal. No pneumothorax or pleural effusion. IMPRESSION: Negative exam. Electronically signed by Giovanni Castro 08/19/2019 1:30 PM 08/19/19 1330 Interpreting Physician: Giovanni Castro MD Dictated Date/Time: 08/19/19 1330 cc: Stoney Chacko MD; José Antonio Real MD) - CONSULTS/PCP/HOSPITALIST Notification #1 *Consult/PCP/Hospitalist*: Lavonne Time Discussed: 14:39 Consult Disposition: Will see in ED, Admit Procedures - INCISION & DRAINAGE Site: 3rd finger, right hand Abscess Type: Paronychia Anesthetic: Lidocaine/Xylocaine Volume of Anesthetic (ml's): 3 Blade Size: 11 Sterile Dressing Applied?: Yes Drainage: Small Amount Departure - Departure Date of Disposition Decision: 08/19/19 Time of Disposition Decision: 14:40 DIAGNOSIS: Paronychia of right middle finger, Leukocytosis, MARISABEL (acute kidney injury), Hyperkalemia Disposition: ADMITTED INPATIENT 09 Certified Medical Emergency: Emergent Condition: Good Referrals and Follow-Ups: José Antonio Real MD [Primary Care Provider] - - Critical Care Note This patient required my direct & personal management of CC.: No Attestation - Physician/ MAURY Attestation Patient care was provided by Advanced Practice Provider:: No The physician spent face to face time with patient:: Yes Advanced Practice Provider documentation review:: Supervising physician onsite and consulted in the evaluation and care of this patient. The physician did have a face to face encounter with the patient. This chart was documented by the indicated scribe, (Angelic Quintana, Marcelo) and accurately reflects the services I performed and decisions made by me, Stoney Chacko MD, as attested by the provider's signature.
[2019-08-19] MEDS ORDERED: KAYEXALATE PO ONE ×2 (15:27→22:00)
[2019-08-19 15:30] LABS: UR PROT RANDOM 45.8 mg/dL
[2019-08-19] MEDS: ALBUTEROL 0.5% INH CONC FOR HYPERKALEMIA INH ONE ×2 (15:31→15:32)
[2019-08-19 15:46] LABS: URINE BACTERIA NEGATIVE /HPF; URINE WBC TNTC /HPF (<10)
--- NOTE | 2019-08-19 15:50 | Diag Imaging Result Doc PS360 ---
HAND COMPLETE RIGHT - 08/19/2019 INDICATION: ? abcess, ?osteo TECHNIQUE: Three views COMPARISON: None FINDINGS: Bones are intact and normally aligned. Joint spaces and soft tissues are clear. IMPRESSION: Negative exam. Electronically signed by Giovanni Castro 08/19/2019 3:48 PM
[2019-08-19] MEDS: HUMALOG SUBQ SCH ×2 (16:00→20:41)
--- NOTE | 2019-08-19 16:29 | HISTORY AND PHYSICAL ---
CHIEF COMPLAINT: Finger pain and infection. HISTORY OF PRESENT ILLNESS: This is a 39-year-old female with a history of diabetes mellitus, hypertension, hyperlipidemia, prior acute kidney injury secondary to Bactrim, lisinopril and volume depletion. She presents to the emergency room complaining of an area that is swollen, red and painful to her 3rd finger on her right hand. She states she has been evaluated at a walk-in clinic twice in the last 2 weeks. Both times this was drained. She was given antibiotics. The 1st time she was given Bactrim, the 2nd antibiotic she was given was Baxdela. She reports pain, swelling, redness, subjective fevers. PAST MEDICAL HISTORY: 1. Diabetes mellitus type 2. 2. Hypertension. 3. Hyperlipidemia. 4. History of acute kidney injury secondary to Bactrim, lisinopril and volume depletion in 2017. PAST SURGICAL HISTORY: Oophorectomy for benign tumor . ALLERGIES: No known drug allergies. HOME MEDICATIONS: A list will be obtained by the nursing staff and once verified review restart as appropriate. SOCIAL HISTORY: She denies alcohol or illicit drug use. She does smoke about a pack a day. FAMILY HISTORY: Is positive for coronary artery disease and diabetes in parents and grandparents. REVIEW OF SYSTEMS: Discussed with patient with pertinent positives stated in the HPI. She denied any syncope, dizziness, chest pain, palpitations, any shortness of breath, cough, fever, chills, PND, orthopnea, cough, PND, orthopnea, any nausea, vomiting, diarrhea, constipation, black or bloody vomitus or stools, any hematuria, dysuria, frequency urgency. PHYSICAL EXAMINATION: GENERAL: This is a very pleasant 39-year-old female who is sitting up on the stretcher in the emergency room in no distress. VITAL SIGNS: Blood pressure is 104/57 with a heart rate of 96, respirations are 16, temperature is 98.2 degrees with room air saturations 97 to 99%. HEENT: Pupils equal, round, react to light. EOMs are intact. Sclerae are anicteric. HEENT: Head is normocephalic, atraumatic. Mucous membranes are moist. NECK: Supple with trachea midline. CARDIOVASCULAR: Regular rate and rhythm. S1 and S2 are appreciated. She has no lower extremity edema. Calves are nontender bilateral with peripheral pulses palpable x4 extremities. PULMONARY: Breath sounds are clear with no increased work of breathing noted. Chest rises and falls symmetric with respiration. Chest wall is nontender to palpation . GASTROINTESTINAL: Abdomen is soft, nontender, nondistended with bowel sounds in all 4 quadrants. GENITOURINARY: She has no CVA nor suprapubic tenderness. NEUROLOGIC: She is alert and oriented x3. SKIN: Warm and dry with an area just lateral to her fingernail 3rd finger right hand DIP joint that has been drained by the emergency room physician. Right finger continues to be swollen. She does have good sensation. Capillary refill is less than 3 seconds. On the palmar surface of her hand she does have some edema to just below the 3rd finger. It is tender to palpation . LABS: WBC is 22 with hemoglobin 12.8, hematocrit 41.6 and platelets 577,000. Chemistries at 11:50 sodium 130, potassium 6.5, CO2 8, anion gap 24, BUN 79, creatinine 2.5 with a glucose of 244. Repeat at 2 o'clock sodium 135, potassium 6.9, CO2 10, gap 20 with a BUN of 78, creatinine 2.5 and glucose of 184. Urinalysis is consistent with contamination. This is a clean-catch specimen with large leukocytes, ddf-kuskkckk-as-count white blood cells and greater than 10 epithelial cells although with yeast cells present although we will order a culture. ASSESSMENT AND PLAN: 1. Paronychia of the right middle finger with cellulitis. 2. Leukocytosis. 3. Acute kidney injury very likely secondary to Bactrim, lisinopril and intravascular volume depletion in a patient who has a history of prior acute kidney injury secondary to this combination. We will hold any renal toxic medications, dose antibiotics as appropriate. Continue with IV hydration. Order urine electrolytes, a renal ultrasound, check a renal profile daily. I did discuss this case with Dr. Adorno. We will consult him. 4. Hyperkalemia. Will give D50, 10 units of regular insulin IV, Veltassa, sodium bicarbonate, calcium gluconate and 25 mg albuterol neb and recheck. Will check a renal profile every 4 hours. 5. Leukocytosis likely secondary to right finger cellulitis, this was opened at the bedside per the emergency room doctor hopefully a culture was obtained. She was given vancomycin, Zosyn and Rocephin in the emergency room. We will give Zyvox, renally dosed Zosyn and further antibiotics will be culture driven. 6. Diabetes mellitus type 2. She will be placed on pattern blood glucose with sliding scale insulin. We will check a hemoglobin A1c . 1. Will obtain an x-ray of her right hand. Will obtain EKG for her hyperkalemia and trend. The patient will be admitted to ICU for close monitoring. Patient was evaluated and plan was discussed with Dr. Enamorado. Further treatments pending hospital course. Dictated by BLAINE Banks for Gustavo Hodge MD cc: BLAINE Banks MD
--- NOTE | 2019-08-19 17:25 | Diag Imaging Result Doc PS360 ---
US RENAL 2 (RETROPER) COMPLETE - 08/19/2019 INDICATION: MARISABEL TECHNIQUE: COMPARISON: 04/28/2017 FINDINGS: There is some sort echogenic area within the urinary bladder. This is lobular and heterogeneous. This measures about 4 cm. The kidneys themselves are normal. No hydronephrosis. The right kidney measures 11.3 x 5 x 6.1 cm. The left kidney measures 11 x 6.1 x 6 cm. IMPRESSION: Indeterminate mass in the urinary bladder. This may represent a tumor, or a hematoma. Correlate clinically. Consider a CT abdomen pelvis with intravenous contrast for further evaluation. Electronically signed by Giovanni Castro 08/19/2019 5:23 PM
[2019-08-19] MEDS: ZYVOX 600 MG/D5W 600 MG/300 ML IVPB IV SCH (18:38)
--- NOTE | 2019-08-19 20:30 | EKG Report ---
Test Performed on : 08/19/2019 11:41:53 AM Test Reason : hyperkalemia Blood Pressure : / mmHG Vent. Rate : 101 BPM Atrial Rate : 101 BPM P-R Int : 142 ms QRS Dur : 086 ms QT Int : 356 ms P-R-T Axes : 055 003 036 degrees QTc Int : 461 ms Sinus tachycardia. Low voltage QRS Cannot rule out Inferior infarct , age undetermined Abnormal ECG When compared with ECG of 27-APR-2017 15:47, Significant changes have occurred Unconfirmed Result
[2019-08-19] MEDS: NS 1,000 ML IV SCH (20:42)
[2019-08-19 20:46] LABS: ALBUMIN 3.2 g/dL (3.5-5.0); CALCIUM 7.9 mg/dL (8.8-10.2); CREATININE 2.1 mg/dL (0.5-0.9); PHOSPHORUS 6.1 mg/dL (2.7-4.5); POTASSIUM 4.4 mmol/L (3.5-5.1)
[2019-08-19] MEDS: NORCO-5 PO PRN (20:51)
[2019-08-19] MEDS: ZOSYN 2.25 GM in NS 50 ML IV SCH (21:29)
--- NOTE | 2019-08-19 21:44 | Diag Imaging Result Doc PS360 ---
US OBS COMPLETE < 14 WKS - 08/19/2019 INDICATION: TECHNIQUE: Endovaginal COMPARISON: None FINDINGS: There is a single intrauterine . Estimated gestational age is six weeks three days +/- one week. Estimated delivery date is 04/10/2020. Normal-appearing gestational sac and yolk sac. Normal maternal uterus and ovaries. No cardiac activity could be detected. The urinary bladder is normal. The previously detected abnormality was an artifact. IMPRESSION: Single, early intrauterine . Electronically signed by Giovanni Castro 08/19/2019 9:42 PM
--- NOTE | 2019-08-19 22:14 | CONSULTATION ---
DATE OF CONSULTATION: 08/19/2019 HISTORY OF PRESENT ILLNESS: The patient is a 39-year-old woman who presented to the emergency room complaining of finger pain. She was noted to have cellulitis of the finger in her right hand, with an elevated white count. A test was performed which was positive. Quantitative beta-hCG was performed, which indicated 28,000. She was admitted for cellulitis as well as acute renal failure. Creatinine 2.5, most likely secondary to her diabetes. Hemoglobin A1c is elevated. She has had this situation before and was previously treated with Bactrim in combination with her lisinopril. Her history is complicated by type 2 diabetes and her hemoglobin A1c is 12.5. Renal ultrasound was performed, which indicated normal kidneys, no hydroureter, a mass within the bladder. An ultrasound of the revealed a normal bladder; a gestational sac with what appears to be a yolk sac, but no pole identified. PREVIOUS MEDICAL HISTORY: Pertinent for diabetes type 2, hypertension, hyperlipidemia, and the history of acute renal failure in the past 2 years ago. OBSTETRICAL HISTORY: G1. This is the index . 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 ALLERGIES: None to medicines. SOCIAL HISTORY: Negative for alcohol and drugs. She is a 7-wqjz-jja-day smoker. FAMILY HISTORY: Pertinent for coronary artery disease, diabetes. REVIEW OF SYSTEMS: Negative for chest pain, shortness of breath, headache, cough, runny nose. Positive for subjective fevers. No constipation or diarrhea. Some breast tenderness over the past week. PHYSICAL EXAMINATION: This is a well-developed, well-nourished, obese woman appearing her stated age, in no acute distress. Breathing is nonlabored. Heart is regular rate and rhythm. The abdomen is protuberant. No uterus is palpated. Extremities without clubbing, cyanosis or edema. The right hand and finger are bandaged secondary to her cellulitis. LABORATORY DATA: Hemoglobin 12.8, white count is 22.3 with a neutrophilia, a neutrophilic left shift. Platelets 577,000. PT, PTT are within normal limits. Her potassium is 4.4, down from 6- plus. Beta-hCG is above 28,000. DIAGNOSTIC DATA: Ultrasound results described above. ASSESSMENT AND PLAN: A 39-year-old 1, admitted for cellulitis; complicated by type 2 diabetes with hyperglycemia; hypertension; hyperlipidemia; acute renal failure. 1. . The ultrasound picture is inconsistent with her beta-hCG, and is consistent with an abnormal , a missed or blighted ovum. She may require dilation and curettage; however, in the face of her acute renal failure, dehydration and hyperglycemia, this may be put off until she is more stable. Repeat beta-hCG in 2 days. Repeat ultrasound. 2. Cellulitis. As above. 3. Hyperglycemia. Improved diabetic control. [facility]
[2019-08-20] MEDS: ZOSYN 2.25 GM in NS 50 ML IV SCH ×4 (02:42→21:41)
[2019-08-20] MEDS: ZYVOX 600 MG/D5W 600 MG/300 ML IVPB IV SCH ×2 (03:28→18:03)
[2019-08-20] MEDS: NORCO-5 PO PRN ×4 (03:37→18:44)
[2019-08-20 05:53] LABS: BASO# 0.06 X1000 (0.0-0.2); BASO% 0.4 % (0.0-0.8); EOS# 0.23 X1000 (0.0-0.7); EOS% 1.6 % (0.0-10.0); HEMATOCRIT 33.5 % (37.0-47.0); HEMOGLOBIN 10.4 g/dL (12.0-16.0); IMM GRAN# 0.03 X1000 (0.0-0.04); IMM GRAN% 0.2 % (0.0-0.5); LYMPH# 5.07 X1000 (1.2-3.4); LYMPH% 34.9 % (20.5-51.1); MCH 27.1 PG (27-31); MCV 87.2 FL (81-99); MONO# 0.56 X1000 (0.11-0.59); MONO% 3.9 % (1.7-9.3); MPV 10.5 FL (7.4-10.4); NEUT# 8.56 X1000 (1.4-6.5); PLT 417 X1000 (130-400); RBC 3.84 XMIL (4.2-5.4); RDW 15.1 % (11.5-14.5); WBC 14.51 X1000 (4.8-10.8)
[2019-08-20] MEDS: NS 1,000 ML IV SCH ×3 (06:23→18:14)
[2019-08-20] MEDS: HUMALOG SUBQ SCH ×4 (06:24→21:41)
[2019-08-20 06:36] LABS: ALBUMIN 2.9 g/dL (3.5-5.0); CALCIUM 8.3 mg/dL (8.8-10.2); CREATININE 1.4 mg/dL (0.5-0.9); PHOSPHORUS 4.7 mg/dL (2.7-4.5); POTASSIUM 5.1 mmol/L (3.5-5.1)
--- NOTE | 2019-08-20 07:55 | PROGRESS NOTE ---
DATE: 08/20/2019 SUBJECTIVE: Patient reports feeling fine. The erythema in the right middle finger is getting better. Her blood pressure has been maintained with IV fluids, above 100 all the time according to nursing staff. No other issues noted. OBJECTIVE: Vital Signs: Temperature 97.2 degrees, heart rate 91, respiratory rate 16, blood pressure 100/65, O2 saturation 100% on room air. General Examination: This is a 39-year-old, female lying in bed, in no acute distress. Cardiovascular Examination: S1 and S2 heard. No murmurs, gallops, or rubs. Regular rate and rhythm. Respiratory Examination: Clear bilaterally to auscultation. No work of breathing or using accessory muscles. Abdomen: Soft, nontender to palpation. Bowel sounds present. No organomegaly. Extremities: No clubbing, cyanosis, or edema. Peripheral pulses present in both legs. Right finger is swollen with capillary refill less than 3 seconds, better in comparing with yesterday. On the palmar surface of her hand, she does have mild edema just below the third finger, tender to palpation. Neurological Examination: The patient is alert and oriented x3. Moves 4 extremities. Laboratory Data: White cell count 14.51, hemoglobin 10.4, hematocrit 33.5, with platelet count 417,000. BMP reveals potassium of 5.1 with creatinine of 1.4, glucose 105, phosphorus 4.7. ASSESSMENT AND PLAN: 1. Acute kidney injury, most likely secondary to medication such as Bactrim, lisinopril, and also intravascular volume depletion. Clinically, this patient is responding to intravenous fluids. Her creatinine at admission was 2.5 and today is 1.4. Also, she responded to a potassium- lowering agent. Potassium is normal today. At this point, we will continue with the same management. 2. Hyperkalemia, resolved. We will continue to monitor. 3. Right finger cellulitis. Patient is on Zyvox and Zosyn. At this point, while the creatinine is adjusting, we are not going to make any changes to her current doses of Zosyn. 4. Diabetes mellitus type 2. We will continue with sliding scale insulin. Accu-Chek before meals and also at bedtime. 5. . We found out that this patient has a urine positive for . The ultrasound that we ordered is inconsistent with her beta hCG. Dr. Sultana from obstetrics/gynecology may need to do a dilatation and curettage but they will hold this procedure because of her renal failure, dehydration, and hyperglycemia. From a medical standpoint, I think on Wednesday, her renal function should be back to normal according to her labs, how they are attending. I think at that time, she will be ready for any procedure that obstetrics/gynecology may want to perform. Initially, on the renal ultrasound, it was noted a mass in the urinary bladder but the obstetric ultrasound reported that it was an artifact. 6. Disposition. I think this patient is medically stable so we will transfer her out to the intensive care unit today. cc: Gustavo Hodge MD
--- NOTE | 2019-08-20 09:18 | OB/GYN PROGRESS NOTE ---
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 Progress Note: Vital Signs - 24 hr 08/19/19 11:22 08/19/19 11:33 08/19/19 11:35 Temperature 98.2 F Pulse Rate 133 H 103 H Respiratory Rate 20 19 Blood Pressure 75/48 104/53 O2 Sat by Pulse Oximetry 96 08/19/19 11:45 08/19/19 12:15 08/19/19 12:33 Temperature Pulse Rate 102 H 95 H 91 H Respiratory Rate 16 20 19 Blood Pressure 92/47 O2 Sat by Pulse Oximetry 98 97 99 08/19/19 12:43 08/19/19 12:53 08/19/19 13:03 Temperature Pulse Rate 101 H 97 H 96 H Respiratory Rate 22 21 22 Blood Pressure 116/59 96/48 93/53 O2 Sat by Pulse Oximetry 99 94 L 99 08/19/19 13:13 08/19/19 13:23 08/19/19 13:33 Temperature Pulse Rate 93 H 101 H 95 H Respiratory Rate 19 16 18 Blood Pressure 82/57 88/57 108/56 O2 Sat by Pulse Oximetry 99 99 08/19/19 13:43 08/19/19 13:45 08/19/19 13:47 Temperature Pulse Rate 102 H 98 H 97 H Respiratory Rate 17 22 21 Blood Pressure 70/45 85/45 O2 Sat by Pulse Oximetry 08/19/19 13:53 08/19/19 14:00 08/19/19 14:03 Temperature Pulse Rate 89 101 H 90 Respiratory Rate 19 17 20 Blood Pressure 93/52 99/53 O2 Sat by Pulse Oximetry 08/19/19 14:13 08/19/19 14:15 08/19/19 14:23 Temperature Pulse Rate 98 H 97 H 93 H Respiratory Rate 22 19 20 Blood Pressure 100/57 93/55 O2 Sat by Pulse Oximetry 99 100 97 08/19/19 14:30 08/19/19 14:46 08/19/19 14:47 Temperature Pulse Rate 93 H 93 H 96 H Respiratory Rate 19 17 15 Blood Pressure 104/57 O2 Sat by Pulse Oximetry 97 98 08/19/19 14:48 08/19/19 14:53 08/19/19 15:00 Temperature Pulse Rate 95 H 93 H 100 H Respiratory Rate 19 19 18 Blood Pressure 94/62 O2 Sat by Pulse Oximetry 96 84 L 08/19/19 15:03 08/19/19 15:06 08/19/19 15:13 Temperature Pulse Rate 102 H 100 H 102 H Respiratory Rate 14 18 16 Blood Pressure 75/69 114/49 105/67 O2 Sat by Pulse Oximetry 92 L 93 L 96 08/19/19 15:15 08/19/19 15:22 08/19/19 15:30 Temperature Pulse Rate 101 H 103 H 98 H Respiratory Rate 17 15 18 Blood Pressure 102/49 O2 Sat by Pulse Oximetry 100 84 L 99 08/19/19 15:33 08/19/19 15:43 08/19/19 15:45 Temperature Pulse Rate 96 H 108 H 107 H Respiratory Rate 14 26 H 14 Blood Pressure 88/57 107/54 O2 Sat by Pulse Oximetry 100 97 100 08/19/19 15:53 08/19/19 16:00 08/19/19 16:03 Temperature Pulse Rate 109 H 109 H 111 H Respiratory Rate 17 14 15 Blood Pressure 115/63 103/50 O2 Sat by Pulse Oximetry 88 L 99 89 L 08/19/19 16:53 08/19/19 16:54 08/19/19 17:00 Temperature Pulse Rate 109 H 108 H 114 H Respiratory Rate 8 L 15 24 Blood Pressure 94/46 O2 Sat by Pulse Oximetry 100 98 08/19/19 17:03 08/19/19 17:13 08/19/19 17:15 Temperature Pulse Rate 115 H 115 H 113 H Respiratory Rate 21 18 20 Blood Pressure 92/55 97/43 O2 Sat by Pulse Oximetry 100 100 97 08/19/19 17:23 08/19/19 17:30 08/19/19 17:33 Temperature Pulse Rate 110 H 116 H 115 H Respiratory Rate 19 20 20 Blood Pressure 94/41 102/59 O2 Sat by Pulse Oximetry 99 98 99 08/19/19 17:43 08/19/19 17:45 08/19/19 17:53 Temperature Pulse Rate 112 H 112 H 111 H Respiratory Rate 16 19 21 Blood Pressure 99/58 97/45 O2 Sat by Pulse Oximetry 100 100 08/19/19 18:00 08/19/19 18:03 08/19/19 18:30 Temperature Pulse Rate 110 H 111 H 108 H Respiratory Rate 19 22 25 H Blood Pressure 114/51 113/61 O2 Sat by Pulse Oximetry 98 08/19/19 18:33 08/19/19 18:48 08/19/19 18:49 Temperature Pulse Rate 109 H 108 H 110 H Respiratory Rate 21 20 19 Blood Pressure 113/63 101/58 O2 Sat by Pulse Oximetry 99 95 98 08/19/19 19:00 08/19/19 19:03 08/19/19 19:15 Temperature Pulse Rate 108 H 105 H 108 H Respiratory Rate 22 19 19 Blood Pressure 119/61 O2 Sat by Pulse Oximetry 100 100 98 08/19/19 19:19 08/19/19 19:30 08/19/19 19:33 Temperature Pulse Rate 110 H 109 H 107 H Respiratory Rate 17 21 19 Blood Pressure 106/61 131/64 O2 Sat by Pulse Oximetry 96 100 100 08/19/19 19:46 08/19/19 19:51 08/19/19 20:00 Temperature Pulse Rate 120 H 110 H 106 H Respiratory Rate 28 H 19 22 Blood Pressure 126/67 O2 Sat by Pulse Oximetry 100 100 08/19/19 20:03 08/19/19 20:15 08/19/19 20:18 Temperature Pulse Rate 111 H 106 H 106 H Respiratory Rate 22 17 16 Blood Pressure 122/54 123/66 O2 Sat by Pulse Oximetry 97 100 100 08/19/19 21:04 08/19/19 21:05 08/19/19 21:15 Temperature Pulse Rate 116 H 111 H 115 H Respiratory Rate 17 21 23 Blood Pressure 118/69 O2 Sat by Pulse Oximetry 100 99 99 08/19/19 21:30 08/19/19 21:45 08/19/19 22:00 Temperature 97.1 F L Pulse Rate 111 H 108 H 105 H Respiratory Rate 19 22 18 Blood Pressure 111/57 O2 Sat by Pulse Oximetry 98 100 99 08/19/19 22:03 08/19/19 22:04 08/19/19 22:15 Temperature Pulse Rate 110 H 108 H 107 H Respiratory Rate 14 19 17 Blood Pressure 111/57 O2 Sat by Pulse Oximetry 99 98 98 08/19/19 22:30 08/19/19 22:45 08/19/19 23:00 Temperature Pulse Rate 108 H 109 H 106 H Respiratory Rate 18 22 20 Blood Pressure O2 Sat by Pulse Oximetry 98 98 97 08/19/19 23:03 12/28/19 23:04 08/19/19 23:05 Temperature Pulse Rate 105 H 104 H 102 H Respiratory Rate 18 19 18 Blood Pressure 86/54 87/49 92/49 O2 Sat by Pulse Oximetry 98 98 98 08/19/19 23:15 08/19/19 23:30 08/19/19 23:45 Temperature Pulse Rate 101 H 102 H 93 H Respiratory Rate 24 24 16 Blood Pressure O2 Sat by Pulse Oximetry 98 97 98 08/20/19 00:00 08/20/19 00:03 08/20/19 00:04 Temperature Pulse Rate 94 H 97 H 96 H Respiratory Rate 19 19 20 Blood Pressure 86/41 O2 Sat by Pulse Oximetry 97 97 97 08/20/19 00:15 08/20/19 00:30 08/20/19 00:45 Temperature Pulse Rate 100 H 96 H 95 H Respiratory Rate 20 19 18 Blood Pressure O2 Sat by Pulse Oximetry 97 96 96 08/20/19 01:00 08/20/19 01:03 08/20/19 01:15 Temperature Pulse Rate 95 H 96 H 112 H Respiratory Rate 20 19 23 Blood Pressure 96/40 O2 Sat by Pulse Oximetry 96 96 98 08/20/19 01:30 08/20/19 01:45 08/20/19 02:00 Temperature Pulse Rate 94 H 97 H 98 H Respiratory Rate 20 32 H 18 Blood Pressure O2 Sat by Pulse Oximetry 97 97 100 08/20/19 02:03 08/20/19 02:15 08/20/19 02:30 Temperature Pulse Rate 91 H 85 87 Respiratory Rate 15 19 23 Blood Pressure 117/68 O2 Sat by Pulse Oximetry 99 99 98 08/20/19 02:45 08/20/19 03:00 08/20/19 03:03 Temperature Pulse Rate 92 H 92 H 93 H Respiratory Rate 18 19 17 Blood Pressure 81/53 O2 Sat by Pulse Oximetry 98 98 98 08/20/19 03:15 08/20/19 03:30 08/20/19 03:45 Temperature Pulse Rate 86 91 H 97 H Respiratory Rate 17 16 22 Blood Pressure O2 Sat by Pulse Oximetry 98 100 100 08/20/19 04:00 08/20/19 04:02 08/20/19 05:03 Temperature 97.2 F L Pulse Rate 93 H 95 H 93 H Respiratory Rate 17 16 18 Blood Pressure 100/65 100/65 92/49 O2 Sat by Pulse Oximetry 99 99 96 08/20/19 06:03 08/20/19 07:03 08/20/19 08:03 Temperature Pulse Rate 84 92 H 98 H Respiratory Rate 16 17 15 Blood Pressure 106/63 111/59 111/59 O2 Sat by Pulse Oximetry 99 100 99 08/20/19 08:05 08/20/19 09:03 Temperature 98.0 F Pulse Rate 101 H Respiratory Rate 17 18 Blood Pressure 111/59 102/58 O2 Sat by Pulse Oximetry 98 98 Bedside Urine ED: Urine Bedside Start: 08/19/19 15:05 Freq: NOW Status: Inactive Protocol: Activity Type Activity Date Activity User E-Sign Co-Sign Detail Recorded Client Recorded Date Recorded By Edit Status 08/19/19 15:38 REJSLATEN Active=>Inactive [id number] 08/19/19 15:38 REJSLATEN Laboratory Results - last 24 hr 08/19/19 08/19/19 08/19/19 11:50 11:50 11:50 WBC 22.30 H RBC 4.78 Hgb 12.8 Hct 41.6 MCV 87.0 MCH 26.8 L MCHC 30.8 L RDW Std Deviation 15.3 H Plt Count 577 H MPV 11.1 H Immature Gran % (Auto) 0.4 Neut % (Auto) 77.2 H Lymph % (Auto) 17.5 L Grady % (Auto) 3.8 Eos % (Auto) 0.7 Baso % (Auto) 0.4 Immature Gran # (Auto) 0.08 H Neut # (Auto) 17.23 H Lymph # (Auto) 3.90 H Grady # (Auto) 0.85 H Eos # (Auto) 0.15 Baso # (Auto) 0.09 ESR PT 13.1 INR 0.98 PTT (Actin FS) 28.9 Sodium 130 L Potassium 6.5 H* Chloride 98 Carbon Dioxide 8 L Anion Gap 24 BUN 79 H Creatinine 2.5 H Estimated GFR/1.73 m2 22 BUN/Creatinine Ratio 32 Glucose 244 H POC Glucose Calculated Osmolality 293 Calcium 8.5 L Phosphorus Total Bilirubin AST ALT Alkaline Phosphatase Creatine Kinase Troponin T Total Protein Albumin Globulin Albumin/Globulin Ratio Plasma Lactate Ser , Semi-Qnt Urine Source Urine Color Urine Turbidity Urine pH Ur Specific [place] Urine Protein Ur Glucose (Stick) Ur Ketones (Stick) Urine Blood Urine Nitrite Urine Bilirubin Urobilinogen Dipstick Urine Leukocytes Urine WBC (Auto) Urine RBC (Auto) U Epithel Cells (Auto) Urine Bacteria (Auto) Ur Eosinophil Smear Urine Crystals Small Round Cells Urine Casts Urine Yeast-like Cells Ur Random Creatinine U Random Total Protein Ur Random Sodium Urine Test 08/19/19 08/19/19 08/19/19 11:50 14:11 14:11 WBC RBC Hgb Hct MCV MCH MCHC RDW Std Deviation Plt Count MPV Immature Gran % (Auto) Neut % (Auto) Lymph % (Auto) Grady % (Auto) Eos % (Auto) Baso % (Auto) Immature Gran # (Auto) Neut # (Auto) Lymph # (Auto) Grady # (Auto) Eos # (Auto) Baso # (Auto) ESR PT INR PTT (Actin FS) Sodium 135 L Potassium 6.9 H* Chloride 105 Carbon Dioxide 10 L Anion Gap 20 BUN 78 H Creatinine 2.5 H Estimated GFR/1.73 m2 22 BUN/Creatinine Ratio 31 Glucose 184 H POC Glucose Calculated Osmolality 298 Calcium 8.3 L Phosphorus Total Bilirubin 0.16 L AST 21 ALT 28 Alkaline Phosphatase 108 H Creatine Kinase 23 L Troponin T < 0.010 Total Protein 6.3 Albumin 3.6 Globulin 2.7 Albumin/Globulin Ratio 1.3 Plasma Lactate Ser , Semi-Qnt 44511.0 Urine Source Urine Color Urine Turbidity Urine pH Ur Specific [place] Urine Protein Ur Glucose (Stick) Ur Ketones (Stick) Urine Blood Urine Nitrite Urine Bilirubin Urobilinogen Dipstick Urine Leukocytes Urine WBC (Auto) Urine RBC (Auto) U Epithel Cells (Auto) Urine Bacteria (Auto) Ur Eosinophil Smear Urine Crystals Small Round Cells Urine Casts Urine Yeast-like Cells Ur Random Creatinine U Random Total Protein Ur Random Sodium Urine Test 08/19/19 08/19/19 08/19/19 14:11 14:46 14:46 WBC RBC Hgb Hct MCV MCH MCHC RDW Std Deviation Plt Count MPV Immature Gran % (Auto) Neut % (Auto) Lymph % (Auto) Grady % (Auto) Eos % (Auto) Baso % (Auto) Immature Gran # (Auto) Neut # (Auto) Lymph # (Auto) Grady # (Auto) Eos # (Auto) Baso # (Auto) ESR PT INR PTT (Actin FS) Sodium Potassium Chloride Carbon Dioxide Anion Gap BUN Creatinine Estimated GFR/1.73 m2 BUN/Creatinine Ratio Glucose POC Glucose Calculated Osmolality Calcium Phosphorus Total Bilirubin AST ALT Alkaline Phosphatase Creatine Kinase Troponin T Total Protein Albumin Globulin Albumin/Globulin Ratio Plasma Lactate 1.2 Ser , Semi-Qnt Urine Source CLEAN CATCH Urine Color YELLOW Urine Turbidity HAZY Urine pH 5.5 Ur Specific [place] 1.035 Urine Protein 50 A Ur Glucose (Stick) 150 A Ur Ketones (Stick) NEGATIVE Urine Blood NEGATIVE Urine Nitrite NEGATIVE Urine Bilirubin NEGATIVE Urobilinogen Dipstick NORMAL Urine Leukocytes LARGE A Urine WBC (Auto) TNTC A Urine RBC (Auto) <10 U Epithel Cells (Auto) >10 A Urine Bacteria (Auto) NEGATIVE Ur Eosinophil Smear Urine Crystals NONE SEEN Small Round Cells NONE SEEN Urine Casts NONE SEEN Urine Yeast-like Cells PRESENT Ur Random Creatinine 164.3 H U Random Total Protein Ur Random Sodium Urine Test 08/19/19 08/19/19 08/19/19 14:46 14:46 14:46 WBC RBC Hgb Hct MCV MCH MCHC RDW Std Deviation Plt Count MPV Immature Gran % (Auto) Neut % (Auto) Lymph % (Auto) Grady % (Auto) Eos % (Auto) Baso % (Auto) Immature Gran # (Auto) Neut # (Auto) Lymph # (Auto) Grady # (Auto) Eos # (Auto) Baso # (Auto) ESR PT INR PTT (Actin FS) Sodium Potassium Chloride Carbon Dioxide Anion Gap BUN Creatinine Estimated GFR/1.73 m2 BUN/Creatinine Ratio Glucose POC Glucose Calculated Osmolality Calcium Phosphorus Total Bilirubin AST ALT Alkaline Phosphatase Creatine Kinase Troponin T Total Protein Albumin Globulin Albumin/Globulin Ratio Plasma Lactate Ser , Semi-Qnt Urine Source Urine Color Urine Turbidity Urine pH Ur Specific [place] Urine Protein Ur Glucose (Stick) Ur Ketones (Stick) Urine Blood Urine Nitrite Urine Bilirubin Urobilinogen Dipstick Urine Leukocytes Urine WBC (Auto) Urine RBC (Auto) U Epithel Cells (Auto) Urine Bacteria (Auto) Ur Eosinophil Smear NONE SEEN Urine Crystals Small Round Cells Urine Casts Urine Yeast-like Cells Ur Random Creatinine U Random Total Protein 45.8 Ur Random Sodium 32 Urine Test POSITIVE 08/19/19 08/19/19 08/19/19 17:29 19:53 19:53 WBC RBC Hgb Hct MCV MCH MCHC RDW Std Deviation Plt Count MPV Immature Gran % (Auto) Neut % (Auto) Lymph % (Auto) Grady % (Auto) Eos % (Auto) Baso % (Auto) Immature Gran # (Auto) Neut # (Auto) Lymph # (Auto) Grady # (Auto) Eos # (Auto) Baso # (Auto) ESR 32 H PT INR PTT (Actin FS) Sodium 136 Potassium 4.4 D Chloride 105 Carbon Dioxide 10 L Anion Gap 21 BUN 71 H Creatinine 2.1 H Estimated GFR/1.73 m2 27 BUN/Creatinine Ratio 34 Glucose 266 H POC Glucose 372 H D Calculated Osmolality 302 Calcium 7.9 L Phosphorus 6.1 H Total Bilirubin AST ALT Alkaline Phosphatase Creatine Kinase Troponin T Total Protein Albumin 3.2 L Globulin Albumin/Globulin Ratio Plasma Lactate Ser , Semi-Qnt Urine Source Urine Color Urine Turbidity Urine pH Ur Specific [place] Urine Protein Ur Glucose (Stick) Ur Ketones (Stick) Urine Blood Urine Nitrite Urine Bilirubin Urobilinogen Dipstick Urine Leukocytes Urine WBC (Auto) Urine RBC (Auto) U Epithel Cells (Auto) Urine Bacteria (Auto) Ur Eosinophil Smear Urine Crystals Small Round Cells Urine Casts Urine Yeast-like Cells Ur Random Creatinine U Random Total Protein Ur Random Sodium Urine Test 08/19/19 08/19/19 08/19/19 19:53 20:09 23:00 WBC RBC Hgb Hct MCV MCH MCHC RDW Std Deviation Plt Count MPV Immature Gran % (Auto) Neut % (Auto) Lymph % (Auto) Grady % (Auto) Eos % (Auto) Baso % (Auto) Immature Gran # (Auto) Neut # (Auto) Lymph # (Auto) Grady # (Auto) Eos # (Auto) Baso # (Auto) ESR PT INR PTT (Actin FS) Sodium Potassium Chloride Carbon Dioxide Anion Gap BUN Creatinine Estimated GFR/1.73 m2 BUN/Creatinine Ratio Glucose POC Glucose 263 H Calculated Osmolality Calcium Phosphorus Total Bilirubin AST ALT Alkaline Phosphatase Creatine Kinase Troponin T Total Protein Albumin Globulin Albumin/Globulin Ratio Plasma Lactate 2.8 H 1.8 Ser , Semi-Qnt Urine Source Urine Color Urine Turbidity Urine pH Ur Specific [place] Urine Protein Ur Glucose (Stick) Ur Ketones (Stick) Urine Blood Urine Nitrite Urine Bilirubin Urobilinogen Dipstick Urine Leukocytes Urine WBC (Auto) Urine RBC (Auto) U Epithel Cells (Auto) Urine Bacteria (Auto) Ur Eosinophil Smear Urine Crystals Small Round Cells Urine Casts Urine Yeast-like Cells Ur Random Creatinine U Random Total Protein Ur Random Sodium Urine Test 08/20/19 08/20/19 08/20/19 05:30 05:30 06:18 WBC 14.51 H RBC 3.84 L Hgb 10.4 L D Hct 33.5 L MCV 87.2 MCH 27.1 MCHC 31.0 L RDW Std Deviation 15.1 H Plt Count 417 H MPV 10.5 H Immature Gran % (Auto) 0.2 Neut % (Auto) 59.0 Lymph % (Auto) 34.9 Grady % (Auto) 3.9 Eos % (Auto) 1.6 Baso % (Auto) 0.4 Immature Gran # (Auto) 0.03 Neut # (Auto) 8.56 H Lymph # (Auto) 5.07 H Grady # (Auto) 0.56 Eos # (Auto) 0.23 Baso # (Auto) 0.06 ESR PT INR PTT (Actin FS) Sodium 139 Potassium 5.1 D Chloride 111 H Carbon Dioxide 10 L Anion Gap 18 BUN 57 H Creatinine 1.4 H Estimated GFR/1.73 m2 42 BUN/Creatinine Ratio 41 Glucose 105 H D POC Glucose 87 D Calculated Osmolality 294 Calcium 8.3 L Phosphorus 4.7 H Total Bilirubin AST ALT Alkaline Phosphatase Creatine Kinase Troponin T Total Protein Albumin 2.9 L Globulin Albumin/Globulin Ratio Plasma Lactate Ser , Semi-Qnt Urine Source Urine Color Urine Turbidity Urine pH Ur Specific [place] Urine Protein Ur Glucose (Stick) Ur Ketones (Stick) Urine Blood Urine Nitrite Urine Bilirubin Urobilinogen Dipstick Urine Leukocytes Urine WBC (Auto) Urine RBC (Auto) U Epithel Cells (Auto) Urine Bacteria (Auto) Ur Eosinophil Smear Urine Crystals Small Round Cells Urine Casts Urine Yeast-like Cells Ur Random Creatinine U Random Total Protein Ur Random Sodium Urine Test 39 yo G1 at 8w0d by LMP with MARISABEL, leukocytosis,hyperkalemia, hand cellulitis, poorly controlled DM-2 Patient seen and examined. Discussed US findings of gestational sac, measuring 6w3d and no cardiac activity. Discussed possibility of normal vs abnormal . Beta-HCG 28,000. She denies any vaginal bleeding or discharge. She states periods are regular and LMP was 11/3. Hgb A1c was 12 and she states this is high for her. She states she has "slacked off" with BG control. Her A1c was 7 a few years ago. Discussed importance of BG control in . Physical Exam-General - PHYSICAL EXAM-ADULT Initial Vital Signs Reviewed: Yes - CONSTITUTIONAL General Appearance: appears well, alert, no apparent distress, other (hirsute) - EYES Eyes: PERRL/EOMI - HEAD, EARS, NOSE, MOUTH & THROAT HENMT: normocephalic/atraumatic - RESPIRATORY Respiratory: lungs clear, normal breath sounds, no respiratory distress - CARDIOVASCULAR Cardiovascular: normal peripheral pulses, regular rate, rhythm - GASTROINTESTINAL (ABDOMEN) Abdominal Exam: normal bowel sounds, non tender, soft - MUSCULOSKELETAL Extremity: non-tender, other (3 finger of R hand swollen, erythematous, tender to touch) - SKIN Integumentary: normal color - NEUROLOGIC Neurologic: grossly normal - PSYCHIATRIC Psych/Mental Status: normal mood/affect Assessment/Plan - Assessment/Plan Assessment: 39 yo G1 at 8w0d by LMP with MARISABEL,hyperkalemia, leukocytosis, hand cellulitis, poorly controlled DM-2 1. HD stable, afebrile, WBC/lactate trending down. Hyperkalemia improving. 2. TVUS showed gestational sac, yolk sac but no cardiac activity. GS measuring 6w3d. Will plan to repeat beta-HCG in 48 hours, previously 28,736. Discussed possibility of abnormal vs normal . Monitor for vaginal bleeding. 3. Plan to transfer patient out of ICU today. 4. Discussed importance of BG control in early and increased risk of SAB when BG poorly controlled 5. Will continue to follow.
--- NOTE | 2019-08-20 10:44 | CONSULTATION ---
DATE OF CONSULTATION: 08/20/2019 CHIEF COMPLAINT: Bladder mass. HISTORY OF PRESENT ILLNESS: Mrs. Colvin is a 39-year-old female with history of diabetes, hypertension, hyperlipidemia, who presented to the emergency room yesterday complaining of fatigue and tiredness as well as pain within her right 3rd finger. The patient states she has been dealing with infection for approximately 1-2 weeks now. She was seen in urgent care and had drainage of this area, but has continued to have pain and swelling present. She says this area has been drained twice and it continues to be uncomfortable. She initially was started on Bactrim and was transitioned to Baxdela. She continues to report swelling with redness and fevers. The patient had blood work drawn on admission, which showed a creatinine elevated at 2.5. She had a renal ultrasound performed which showed a possible bladder mass. She was also found to have an elevated beta HCG level and had concern for intrauterine . The patient was seen by Ob-Power Digger Operator and underwent obstetric ultrasound which showed no obvious mass in the bladder. However prior renal ultrasound showed an approximate 4 cm mass within the bladder itself. The patient denies any dysuria, hematuria, urgency, or frequency. The patient does state she has been going to the bathroom more frequently since admission due to the increased fluid intake. She denies any straining to urinate or feeling of incomplete emptying. She states she has not seen a urologist prior. She states that she has had several urinary tract infections in the past, but denies recurrent infection. PAST MEDICAL HISTORY: 1. Type 2 diabetes. 2. Hypertension. 3. Hyperlipidemia. 4. History of acute kidney injury secondary to Bactrim and lisinopril use in 2017. PAST SURGICAL HISTORY: Oophorectomy for benign tumor. ALLERGIES: No known drug allergies. HOME MEDICATIONS: 1. Atorvastatin 20 mg daily. 2. Wellbutrin 200 mg b.i.d. 3. Pioglitazone metformin 12/999 mg 2 tablets b.i.d. 4. Prozac daily. 5. Insulin Degludec 40 units b.i.d. 6. Lisinopril 20 mg p.o. daily. SOCIAL HISTORY: Patient smokes half pack of cigarettes a day. Denies alcohol or illicit drug use family Denies family history of malignancy. REVIEW OF SYSTEMS: All pertinent positives and negatives as in HPI. PHYSICAL EXAMINATION: Vital Signs: Temperature 98 degrees, heart rate 101, blood pressure 111/59, oxygen 98% on room air. General: No acute distress. Resting comfortably in bed. Alert and oriented x3. Respiratory: Good respiratory effort without audible wheezing or rales. HEENT: Normocephalic, a normocephalic, atraumatic. Pupils equal, round, reactive to light. Mucous membranes moist. Neck: Trachea midline with no palpable masses. Cardiovascular: Regular rate and rhythm. No evidence of lower extremity edema. Gastrointestinal abdomen is soft, nontender, nondistended. No palpable masses or hepatosplenomegaly. no suprapubic tenderness. No CVA tenderness. Neurologic: Gross motor and sensory intact. Skin: No lesions or rash. Musculoskeletal: Patient redness lateral to the 3rd phalanges on the right hand, there is some swelling of the entirety of the finger with edema and tenderness to palpation. LABS: White blood cell count 14.5, hemoglobin 10.4, hematocrit 33.5, platelets 417,000. Sodium 139, potassium 5.1, chloride 111, bicarbonate 10, and BUN 57, creatinine 1.4, glucose 105, calcium 8.3. Beta HCG 28,736. IMAGING: Renal ultrasound was reviewed which shows a heterogeneous lobular mass within the base of the bladder measuring approximately 4 cm. No evidence of hydronephrosis, renal mass or renal cyst. The patient also underwent an obstetric ultrasound with images reviewed which showed a normal bladder with what appears to be an intrauterine . The bladder itself shows no obvious lesions present. ASSESSMENT AND PLAN: Mrs. Colvin is a 39-year-old who presented for possible bladder mass. She has a history of type 2 diabetes, hypertension, hyperlipidemia, and depression as well as prior history of acute kidney injury. The patient had a renal ultrasound performed yesterday when she came in with creatinine elevated at 2.5. The ultrasound showed normal kidneys, however, showed a possible mass in the bladder itself. The patient had an obstetric ultrasound which also looked at the bladder, which showed no obvious lesions in the bladder itself. Uncertain if what was seen on the initial ultrasound was the intrauterine versus compression from posterior uterus. In looking at the renal ultrasound appears to be a true mass in the bladder itself. Due to this finding, I would recommend performing cystoscopy to assess further the mass in the bladder. With concern over viability of her , would hold off cystoscopy until decision on next course in management of her . Would see what her beta HCG was tomorrow. If it is downtrending then, would recommend performing cystoscopy with possible retrograde pyelograms if she is planning to undergo dilatation and curettage for nonviable . If this was being scheduled with plan for cystoscopy at that time. If the patient continues to have a viable with plan to perform cystoscopy in the office to limit anesthesia exposure. Continue on IV antibiotics for her finger infection. From a urologic standpoint renal function seems to be improving with a creatinine of 1.4 today from 2.5 on admission. The patient has a consult in for Nephrology to evaluate as well. Would follow-up their recommendation regarding intrinsic renal function. Will continue monitor from urologic standpoint. Please call with questions or concerns. cc: Kvng Dill MD MTDD
[2019-08-21] MEDS: ZOSYN 2.25 GM in NS 50 ML IV SCH ×4 (03:00→19:43)
[2019-08-21] MEDS: NS 1,000 ML IV SCH (03:31)
[2019-08-21] MEDS: ZYVOX 600 MG/D5W 600 MG/300 ML IVPB IV SCH ×2 (04:42→15:26)
[2019-08-21 06:38] LABS: BASO# 0.06 X1000 (0.0-0.2); BASO% 0.5 % (0.0-0.8); EOS% 1.6 % (0.0-10.0); HEMATOCRIT 31.2 % (37.0-47.0); HEMOGLOBIN 9.5 g/dL (12.0-16.0); IMM GRAN# 0.02 X1000 (0.0-0.04); IMM GRAN% 0.2 % (0.0-0.5); LYMPH# 4.23 X1000 (1.2-3.4); LYMPH% 34.3 % (20.5-51.1); MCH 27.2 PG (27-31); MCHC 30.4 g/dL (33-37); MCV 89.4 FL (81-99); MONO# 0.44 X1000 (0.11-0.59); MONO% 3.6 % (1.7-9.3); MPV 10.6 FL (7.4-10.4); NEUT# 7.38 X1000 (1.4-6.5); NEUT% 59.8 % (42.2-75.2); PLT 396 X1000 (130-400); RBC 3.49 XMIL (4.2-5.4); RDW 15.1 % (11.5-14.5); WBC 12.33 X1000 (4.8-10.8)
[2019-08-21 07:09] LABS: AGAP 20; ALBUMIN 2.9 g/dL (3.5-5.0); BUN 24 mg/dL (8-22); CALCIUM 8.2 mg/dL (8.8-10.2); CHLORIDE 107 mmol/L (98-107); COSMO 281; CREATININE 0.9 mg/dL (0.5-0.9); ESTIMATED GFR > 60; GLUCOSE 155 mg/dL (70-104); PHOSPHORUS 2.9 mg/dL (2.7-4.5); POTASSIUM 4.4 mmol/L (3.5-5.1); SODIUM 137 mmol/L (136-145); TCO2 10 mmol/L (25-35)
--- NOTE | 2019-08-21 07:34 | PROGRESS NOTE ---
DATE: 08/21/2019 SUBJECTIVE: No acute events overnight. Patient denies any bladder or pelvic pain. She states her finger pain seems to be getting better. She denies significant drainage from her right 3rd finger. Renal function was improving yesterday. She states she has been voiding without issue. Denies any straining to urinate or frequency of urination. OBJECTIVE: Vital Signs: Temperature 98.1 degrees, heart rate 91, blood pressure 88/60, oxygenation 98% on room air. General: No acute distress. Resting comfortably in bed. Respiratory: Good respiratory effort without audible wheezing or rales. Abdomen: Soft, nontender, nondistended. : No suprapubic tenderness. No CVA tenderness. LABS: White blood cell count 12.3, hemoglobin 9.5, hematocrit 31.2, platelets 396,000. BMP is not returned today. ASSESSMENT AND PLAN: Ms. Colvin is a 39-year-old who presented as urology consult regarding possible bladder mass. The patient has a history of type 2 diabetes, hypertension, hyperlipidemia, and depression and a prior history of acute kidney injury with taking Bactrim and lisinopril. The patient's renal function yesterday showed creatinine 1.4. She has had ultrasound on presentation which showed a possible mass in the bladder. On repeat ultrasound, this was negative. The patient was also found to be with a beta HCG that was elevated. The patient's pelvic ultrasound showed concern that it may not be a viable . She is having a beta HCG repeated today with discussion of possible dilatation and curettage by CALL CIRCUIT WORKER if it continues to downtrend or she becomes symptomatic. Uncertain if she has a bladder mass or not, would hold off on cystoscopy until the patient's is decided upon. If she is going to have to have a dilatation and curettage performed, then would plan to perform cystoscopy at that time. If she is not going to have a dilatation and curettage performed, would consider office cystoscopy to further evaluate for a bladder mass. Most recent ultrasound showed no masses in the bladder and she denies any dysuria, hematuria, or bladder frequency or urgency. We will continue to monitor from a urologic standpoint. Please call with questions or concerns. cc: Kvng Dill MD [facility]
[2019-08-21] MEDS: NORCO-5 PO PRN ×2 (07:54→14:03)
[2019-08-21] MEDS: HUMALOG SUBQ SCH ×4 (07:55→22:00)
[2019-08-21] MEDS: LR 1,000 ML IV SCH ×2 (09:51→21:37)
[2019-08-21] MEDS: PROZAC PO SCH (09:53)
--- NOTE | 2019-08-21 09:54 | NEPHROLOGY CONSULTATION ---
DATE: 08/20/2019 REASON FOR ADMISSION: Infection and pain to right hand middle finger. CONSULTING PHYSICIAN: Dr. Fei Garcia, PATRICIA. HISTORY OF PRESENT ILLNESS: Ms. Colvin is a 39-year-old female with a history of diabetes mellitus type 2, hypertension, hyperlipidemia, history of previous acute kidney injury secondary to Bactrim and lisinopril with volume depletion. The patient had presented to the emergency room complaining of swelling and redness to her 3rd finger on her right hand. She states that it was evaluated at a walk-in clinic twice. The first time, she was treated with Bactrim DS. This did not improve. The second time she was treated with Baxdela. She does report pain, redness, questionable subjective fevers. She states that she has had nausea and vomiting, continued to take her antibiotics along with her blood pressure medication of lisinopril. She states that she has had diarrhea associated with the onset of taking her first antibiotic. She denies chest pain. No increased work of breathing. No recent falls. No increased swelling. PAST MEDICAL HISTORY: Diabetes mellitus type 2, hypertension, hyperlipidemia, history of acute kidney injury secondary to Bactrim, lisinopril and volume depletion in 2017, now repeated. PAST SURGICAL HISTORY: Oophorectomy for benign tumor. SOCIAL HISTORY: The patient smokes approximately 1 pack a day. She denies alcohol or illicit drug use. FAMILY HISTORY: Positive for coronary artery disease, diabetes in parents and grandparents. ALLERGIES: Listed as no known drug allergies. HOME MEDICATIONS: Have been reviewed, lisinopril, [place], Tresiba Flextouch, Wellbutrin, atorvastatin, Prozac, Baxdela, and glipizide. REVIEW OF SYSTEMS: Review of systems x10 with pertinent positives listed above in the HPI. VITAL SIGNS: The patient's most recent vital signs are temperature 98.1 degrees, blood pressure 88/65, heart rate 91 respirations 16. She is on room air, last recorded saturation 98%. She has had 3222 in. She has had 0 recorded out in the last 24 hours. LABORATORY DATA: Sodium is 137, potassium 4.4, chloride 107, CO2 10, BUN 24, creatinine 0.9, glucose 155. Her anion gap is 20, her calcium is 8.2, phosphorus 2.9, albumin 2.9. White count 12.35, hemoglobin 9.5, hematocrit 31.2 with a platelet count of 396,000. Renal ultrasound indicates right kidney measuring 11.3 with a left of 11. The patient also has a report on her renal ultrasound of indeterminate mass in the urinary bladder. Dr. Dill has been consulted. The patient has also had an SENIOR ACCOUNT REPRESENTATIVE obstetric ultrasound performed on the indicating intrauterine . Estimated gestation age is 6 weeks +/-1 week. She has also had a lab draw serum quantitative indicating 28,736. PHYSICAL EXAMINATION: General: This is a 39-year-old white female resting quietly in bed. She appears in no acute distress. Skin: Warm and dry. HEENT: Normocephalic, atraumatic. Conjunctiva is pale pink. She has RADHA. Mucous membranes are dry. Neck: Supple. Trachea midline. No evidence of JVD. Cardiovascular: She has regular rate and rhythm. No murmur or gallop are appreciated. Lungs: Clear to auscultation bilaterally. Equal excursion. She is on room air. Abdomen: Soft, nontender. Positive bowel sounds. Genitourinary: Not inspected. Patient has been voiding. Extremities: Have no edema. No clubbing or cyanosis. She does have an infection noted to her 3rd finger on her right hand with swelling to the medial aspect of her 3rd finger. Neurological: She is alert and oriented x3. ASSESSMENT AND PLAN: 1. Acute kidney injury. Patient's BUN and creatinine have continued to improve with IV fluid resuscitation. Creatinine initially was 2.5, now down to 0.9 with a BUN of 24. Adequate urine output has been documented. 2. Electrolytes. These are acceptable. 3. Acidosis. The patient has has an anion gap and a nonanion gap acidosis which continues. We will check an acetone level today. We will also change her normal saline to lactated Ringer's at 75 mL an hour. Re-evaluate her labs in the a.m. 4. Anemia. This is low but acceptable. 5. Hypertension therapy. We would advise to avoid an VALE or an ARB at this time. Recommend labetalol as needed for her hypertension until it is clear that she is not . 6. Bladder mass. Repeat imaging was negative. This is currently being followed by Dr. Dill. I would like to thank you for allowing us to follow with this patient. Dictated by BLAINE Washington for Mert Adorno MD Face to face encounter, data reviewed, discussed with Arley Ramirez on 08/21/19. I agree with the above assessment and plan of care. cc: BLAINE Washington MD [facility]
--- NOTE | 2019-08-21 10:06 | Diag Imaging Result Doc PS360 ---
EXAM: US OBS COMPLETE < 14 WKS INDICATION: early TECHNIQUE: COMPARISON: 08/19/2019 FINDINGS: There is what is likely an intrauterine gestational sac, which was also seen on the previous study. However, it appears more heterogeneous than the previous study suggesting internal debris. There is an echogenic focus that could represent the pole. If so, no heart tones are detectable. Based on CRL, the gestational age would be 6 weeks 2 days. There is no evidence of subchorionic hemorrhage. IMPRESSION: Abnormal heterogeneous debris within the assumed intrauterine gestational sac and no heart tones appreciated. This is worrisome for missed spontaneous . Close sonographic and hCG surveillance is recommended. Electronically signed by Stanley Wu 08/21/2019 10:03 AM
[2019-08-21] MEDS: LANTUS INSULIN SUBQ SCH (14:03)
--- NOTE | 2019-08-21 14:42 | PROGRESS NOTE ---
DATE: 08/21/2019 SUBJECTIVE: The patient reports feeling fine. Less erythema in the right middle finger. OBJECTIVE: Vital Signs: Temperature 98.6, heart rate 103, respiratory rate 20, blood pressure 146/81, O2 saturation 100% on room air. General: This is a 39-year-old, female, lying in bed in no acute distress. Cardiovascular: S1, S2 heard. No murmurs, gallops, or rubs. Regular rate and rhythm. Respiratory: Clear bilaterally to auscultation. No work of breathing or using accessory muscles. Abdomen: Soft. Nontender to palpation. Bowel sounds present. No organomegaly. Extremities: No clubbing, cyanosis, or edema. Peripheral pulses present in both legs. Right finger swelling. Less tenderness to palpation in comparing with yesterday. Neurological: The patient is alert and oriented x3. Moves all 4 extremities. LABORATORY DATA: White cell count 12,000. Creatinine 0.9. ASSESSMENT AND PLAN: 1. Acute kidney injury, most likely related to medications, such as Bactrim and lisinopril, and intravascular volume depletion. That condition is completely back to normal. Nephrology is following this patient. Will follow recommendations. 2. Severe hyperkalemia, resolved. 3. Right finger cellulitis. Will continue with Zyvox and Zosyn. 4. Diabetes mellitus type 2. Will continue with sliding scale insulin and Accu-Chek before meals and also at bedtime. 5. . I am not quite sure if finally Obstetrics wants to proceed with incision and drainage or not. The quantitative serum test was 20,000 today, which means that it is getting down. At this point, will see if they plan to do incision and drainage or not. Urology mentioned that for suspicion for bladder mass, he will perform cystoscopy in the hospital if the patient finally needs to have incision and drainage. If not, that procedure can be done in the office. 6. Disposition. Will continue to monitor this patient closely. Will see what Obstetrics/Gynecology has to say. cc: Gustavo Hodge MD
[2019-08-21] MEDS ORDERED: TYLENOL PO PRN (22:56)
[2019-08-22] MEDS: ZOSYN 2.25 GM in NS 50 ML IV SCH ×2 (02:51→07:55)
[2019-08-22] MEDS: LR 1,000 ML IV SCH ×2 (02:51→06:57)
[2019-08-22] MEDS: ZYVOX 600 MG/D5W 600 MG/300 ML IVPB IV SCH (02:52)
[2019-08-22 06:40] LABS: BASO# 0.04 X1000 (0.0-0.2); BASO% 0.4 % (0.0-0.8); EOS% 2.2 % (0.0-10.0); HEMATOCRIT 31.1 % (37.0-47.0); HEMOGLOBIN 9.6 g/dL (12.0-16.0); IMM GRAN# 0.02 X1000 (0.0-0.04); IMM GRAN% 0.2 % (0.0-0.5); LYMPH# 3.44 X1000 (1.2-3.4); LYMPH% 38.5 % (20.5-51.1); MCHC 30.9 g/dL (33-37); MCV 87.4 FL (81-99); MONO# 0.37 X1000 (0.11-0.59); MONO% 4.1 % (1.7-9.3); MPV 10.7 FL (7.4-10.4); NEUT# 4.87 X1000 (1.4-6.5); NEUT% 54.6 % (42.2-75.2); PLT 415 X1000 (130-400); RBC 3.56 XMIL (4.2-5.4); RDW 14.5 % (11.5-14.5); WBC 8.94 X1000 (4.8-10.8)
[2019-08-22 07:04] LABS: ESTIMATED GFR > 60
[2019-08-22 07:06] LABS: AGAP 15; ALBUMIN 3.2 g/dL (3.5-5.0); BUN 12 mg/dL (8-22); CALCIUM 8.9 mg/dL (8.8-10.2); CHLORIDE 105 mmol/L (98-107); COSMO 275; CREATININE 0.8 mg/dL (0.5-0.9); GLUCOSE 199 mg/dL (70-104); PHOSPHORUS 3.3 mg/dL (2.7-4.5); POTASSIUM 4.2 mmol/L (3.5-5.1); SODIUM 135 mmol/L (136-145); TCO2 15 mmol/L (25-35)
--- NOTE | 2019-08-22 07:39 | PROGRESS NOTE ---
DATE: 08/22/2019 SUBJECTIVE: No acute events overnight. The patient seems to be doing well. She states that her finger pain is improved. She denies any nausea or vomiting. She denies any dysuria, hematuria, urgency, or frequency. The patient remains on IV antibiotics for her finger infection. The patient has been followed by OB and [place] [address] [place] [address] prior. OBJECTIVE: Vital signs: Temperature 98.1 degrees, heart rate 94, blood pressure 118/57, oxygen saturation 99% on room air. General: No acute distress. Looks to be in bed, alert and oriented x3. Respiratory: Good respiratory effort without audible wheezing or rales. Abdomen: Soft, nontender, nondistended. No palpable mass. Genitourinary: No suprapubic tenderness. No CVA tenderness. LABORATORY DATA: White blood cell count 8.9, hemoglobin 9.6, hematocrit 31.1, platelets of 415,000. Glucose 198. Creatinine from today has not returned. Creatinine yesterday was 0.9[place] [address] [place] yesterday. IMAGING: OB ultrasound seemed to show a possible intrauterine gestational sac with no heart tones and heterogenic debris within this that was concerning for a nonviable . ASSESSMENT AND PLAN: Mr. Colvin is a 39-year-old who presented as a Urology consult regarding possible bladder mass with acute kidney injury. Patient had an ultrasound of the kidneys which showed no evidence of hydronephrosis when she had a creatinine elevated at 2.5, however, it showed a possible mass in the bladder itself. On repeat obstetric ultrasound, there was no mass of the bladder. The patient denies any voiding complaints. Denies any dysuria, hematuria, urgency, or frequency. The patient has been followed by SOIL SORT WORKER and they are recommending spontaneous passage of nonviable . I told her if she went to the operating room for dilatation and curettage, we could consider cystoscopy at that time. Otherwise, I would plan for her to return to clinic and have an in-office cystoscopy to assess for possible bladder mass. I think that the lesion is likely an artifact on the ultrasound itself, but need to rule out possible malignancy. We will continue to monitor from a urologic standpoint. Please call with questions or concerns. cc: Kvng Dill MD [facility]
[2019-08-22] MEDS: HUMALOG SUBQ SCH ×2 (07:47→12:05)
[2019-08-22] MEDS: PROZAC PO SCH (08:02)
[2019-08-22] MEDS: NORCO-5 PO PRN ×2 (08:08→14:31)
[2019-08-22] MEDS: LANTUS INSULIN SUBQ SCH (08:10)
[2019-08-22 11:52] VITALS: BP 108/57
--- NOTE | 2019-08-22 12:38 | OB/GYN PROGRESS NOTE ---
Progress Note AUTOMATION DESIGN ENGINEER - . Patient Problems: Current Active Problems Problem Status Onset Hyperkalemia Acute Acute kidney injury Acute Paronychia of right middle finger Acute Leukocytosis Acute AUTOMATION DESIGN ENGINEER Progress Note: Vital Signs - 24 hr 08/21/19 16:00 08/21/19 19:58 08/22/19 00:53 Temperature 98.7 F 98.3 F 97.9 F Pulse Rate 101 H 110 H 91 H Respiratory Rate 20 18 16 Blood Pressure 135/72 142/89 127/67 O2 Sat by Pulse Oximetry 99 100 98 08/22/19 03:22 08/22/19 07:43 08/22/19 11:51 Temperature 98.1 F 98.3 F 98 F Pulse Rate 94 H 92 H 106 H Respiratory Rate 20 16 20 Blood Pressure 118/57 118/66 108/57 O2 Sat by Pulse Oximetry 99 97 98 Bedside Urine ED: Urine Bedside Start: 08/19/19 15:05 Freq: NOW Status: Inactive Protocol: Activity Type Activity Date Activity User E-Sign Co-Sign Detail Recorded Client Recorded Date Recorded By Edit Status 08/19/19 15:38 REJSLATEN Active=>Inactive [id number] 08/19/19 15:38 REJSLATEN Laboratory Results - last 24 hr 08/21/19 08/21/19 08/22/19 17:35 20:20 06:00 WBC RBC Hgb Hct MCV MCH MCHC RDW Std Deviation Plt Count MPV Immature Gran % (Auto) Neut % (Auto) Lymph % (Auto) [place] % (Auto) Eos % (Auto) Baso % (Auto) Immature Gran # (Auto) Neut # (Auto) Lymph # (Auto) [place] # (Auto) Eos # (Auto) Baso # (Auto) Sodium 135 L Potassium 4.2 Chloride 105 Carbon Dioxide 15 L Anion Gap 15 BUN 12 Creatinine 0.8 Estimated GFR/1.73 m2 > 60 BUN/Creatinine Ratio 15 Glucose 199 H POC Glucose 222 H 214 H Calculated Osmolality 275 Calcium 8.9 Phosphorus 3.3 Albumin 3.2 L 08/22/19 08/22/19 08/22/19 06:00 06:28 11:02 WBC 8.94 RBC 3.56 L Hgb 9.6 L Hct 31.1 L MCV 87.4 MCH 27.0 MCHC 30.9 L RDW Std Deviation 14.5 Plt Count 415 H MPV 10.7 H Immature Gran % (Auto) 0.2 Neut % (Auto) 54.6 Lymph % (Auto) 38.5 [place] % (Auto) 4.1 Eos % (Auto) 2.2 Baso % (Auto) 0.4 Immature Gran # (Auto) 0.02 Neut # (Auto) 4.87 Lymph # (Auto) 3.44 H [place] # (Auto) 0.37 Eos # (Auto) 0.20 Baso # (Auto) 0.04 Sodium Potassium Chloride Carbon Dioxide Anion Gap BUN Creatinine Estimated GFR/1.73 m2 BUN/Creatinine Ratio Glucose POC Glucose 198 H 206 H Calculated Osmolality Calcium Phosphorus Albumin Assessment/Plan - Problem List Patient Problems: All Active Problems Hyperkalemia (Acute) Acute kidney injury (Acute) Hyperglycemia due to type 2 diabetes mellitus (Acute) Paronychia of right middle finger (Acute) Leukocytosis (Acute) - Assessment Assessment: Missed : Beta quant. dropping, light spotting - Plan Plan: No cytotec or D&C today, dis was discussed with patient in pass but with beta quant dropping on on, there might be no need for intervention. Patient is being d/c home today, she plans f/u in office Instructions given for heavy bleeding
--- NOTE | 2019-08-22 18:03 | DISCHARGE SUMMARY ---
ADMISSION DATE: 08/19/2019 DISCHARGE DATE: 08/22/2019 DISCHARGE DIAGNOSES: 1. Acute kidney injury resolved. 2. Severe hyperkalemia resolved. 3. Right finger cellulitis improved. 4. Diabetes mellitus type 2, under control. 5. Non-viable 1st trimester gestation aware. 6. Suspected bladder mass. CONSULTATIONS: 1. Dr. Pavel Sultana from [facility]. 2. Dr. Kvng Dill from Urology. 3. Dr. Mert Adorno from Nephrology. PROCEDURES: 1. Chest x-ray done on admission showed negative exam. 2. Obstetric ultrasound showed single early intrauterine , with no cardiac activity. 3. Obstetric ultrasound done next day showed some debris with assumed intrauterine gestational sac and no heart tones appreciated. This is worrisome missed spontaneous . HOSPITAL COURSE: This is a 39-year-old, female with history of diabetes mellitus type 2, hypertension, hyperlipidemia, prior acute kidney injury secondary to Bactrim who presented to the emergency department complaining of swollen red painful right 3rd finger. She was prescribed Bactrim 2 weeks ago. Upon ER evaluation, she was found out to have a severe hyperkalemia with acute kidney injury. She was admitted for those conditions. Workup for acute kidney injury revealed in the renal ultrasound a bladder mass. We also found out that this patient was and so from medical standpoint, we will provide IV fluids. Renal function started to improve. From [facility] standpoint, we have checked quantitative test and we found out that the beta hCG was dropping so [facility] decided not to do any procedure. Also to rule out bladder mass even though in the subsequent echocardiograms there was no such mass there they decided to have a followup with them in a week after discharge to do an outpatient cystoscopy. Overall, this patient is doing good. We stop, of course, Bactrim and we have stopped also lisinopril and changed for amlodipine. The patient is going to complete 1 more week of antibiotics. The patient is going to be discharged in stable condition. DISCHARGE PHYSICAL EXAMINATION: Vital Signs: Temperature 98 degrees, heart rate 106, respiratory rate 20, blood pressure 108/57, O2 saturation 98% on room air. General: This is a 39-year-old, female lying in bed, in no acute distress. Cardiovascular: S1, S2 heard. No murmurs, gallops, or rubs. Regular rate and rhythm. Respiratory: Exam clear bilaterally to auscultation. No work of breathing or using accessory muscles. Abdomen: Soft, nontender to palpation. Bowel sounds present. No organomegaly. Extremities: Right 3rd finger definitely is less swollen, less painful and less warm noted. Capillary refill is okay. Neurological: The patient is alert and oriented x3. Moves 4 extremities. DISCHARGE DISPOSITION: Home to self-care. 1. Follow up with Dr. Kvng Dill from Urology in a week. 2. Follow up with Dr. Vel Potter in a week after she finished her treatment for infection. MEDICATIONS: 1. Clindamycin 1 tablet p.o. every 6 hours for a week. 2. Amlodipine 5 mg 1 tablet p.o. b.i.d. 3. [place] 5, 1 tablet p.o. every 4 to 6 hours as needed. 4. Insulin Tresiba 40 mEq twice daily. 5. Bupropion 200 mg 1 tablet p.o. b.i.d. 6. Atorvastatin 40 mg 1 tablet p.o. daily. 7. Fluoxetine 40 mg 1 tablet p.o. daily. 8. Baxdela 1 tablet p.o. b.i.d. 9. Glipizide 10 mg 1 tablet p.o. daily. DISPOSITION: Home to self-care. cc: Gustavo Hodge MD MTDD
== END 2019-08-22 14:45 | disposition home or self-care (01) ==
LOC: ED 11:16 → ICU 11:17 → 4N 08-20 09:51
PROVIDERS: ATTEND Internal Medicine